=== PATIENT | female | born 1965 | race African-American/Black ===

== ENCOUNTER 2016-07-09 17:22 | Emergency (ER) | payer OTHER ==
[~2016-07-09] VITALS: Ht 167.6 cm; Wt 155.1 kg
--- NOTE | ~2016-07-09 | EKG ---
[place] [address] [facility] [place] [address] ELECTROCARDIOGRAM REPORT Name: CANDIDO FISH [facility] [id number] Admission: 07/09/16 Attend Phys: Discharge: 07/09/16 Date of : 69 Report #: [id number] THIS REPORT FOR: //name// [facility] ED Test Date: 2016-07-09 Test Time: 17:27:39 Pat Name: CANDIDO FISH Department: Room: Gender: F Home Demonstration Agent: CLAY : 1965 Requested By: Sincere Crawley Order Number: [id number] MD: Saman Leos Measurements Intervals [place] Rate: 96 P: 51 MO: 148 QRS: -10 QRSD: 100 T: 41 QT: 380 QTc: 481 Interpretive Statements Sinus rhythm Nonspecific ST and T-wave abnormality Compared to ECG 04/01/2016 11:44:37 No significant change was found Electronically Signed On 07-10-2016 8:00:26 SHOTBLASTER by Saman Leos [email or web address] <ELECTRONICALLY SIGNED> By: Saman Leos MD, [facility] 07/10/16 0800 D: [id number] Saman Leos MD, FACC /EPI
[~2016-07-09 17:22] MED LIST: ALBUTEROL INH INH; AMBIEN 5 MG TABL5 M1 PO; AMLODIPINE BESY10 MG PO; ATIVAN0.5 MG PO; AZATHIOPRINE50 MG PO; AZITHROMYCIN 2250 MG PO; BENTYL 20 MG TA20 M1 PO; BUSPIRONE HCL10 MG PO; BUSPIRONE HCL15 MG PO; CARVEDILOL12.5 MG PO; CARVEDILOL3.125 MG PO; CATAPRES0.2 MG PO; CLONAZEPAM 0.50.5 M1; CLONIDINE0.1 PO; COLACE100 MG PO; COREG12.5 MG PO; CYMBALTA30 MG PO; DEPAKOTE250 MG PO; DESYREL100 MG PO; DIOVAN 80 MG TA80 M1 PO; ENTOCORT EC 3 MG3 MG PO; FLEXERIL PO; GABAPENTIN 100100 MG PO; GLIPIZIDE 10 MG10 MG PO; GLUCOPHAGE XR500 MG PO; HYDROCODON-ACE1 EAC7 PO; HYDROXYZINE HCL25 M2 PO; IRON325 PO; K-TAB10 MEQ PO; LANTUS SOL100 UNIT/1 SUBQ; LANTUS100 UNIT/M SUBQ; LASIX 20 MG TAB20 MG PO; LASIX 40 MG TAB40 M1 PO; LEVEMIR; LEVSIN0.125 MG PO; LEXAPRO PO; LIDODERM 5%1 PATC1 TRANSDERM; LIPITOR 10 MG10 M1 PO; LIPITOR 20 MG T20 M1 PO; LISINOPRIL2.5 MG PO; MIRALAX255 GM PO; MUCINEX TA600 MG/TA2 PO; NAPROSYN500 MG PO; NEURONTIN 400400 M1 PO; NORCO 5-325 TA1 EACH PO; NORVASC10 MG PO; ONDANSETRON HCL4 M2 PO; OXYCODONE HCL E20 MG PO; OXYCODONE HCL20 M1 PO; OXYCODONE HCL30 MG PO; OXYCONTIN20 M1 PO; PEPCID20 MG PO; PERCOCET 5-3251 EACH PO; PHENERGAN 25 MG25 M1 PO; PHENERGAN50 MG RC; POTASSIUM99 M1 PO; PREDNISONE 10 M10 MG PO; PREDNISONE 20 M20 M1 PO; PREDNISONE 20 M20 MG PO; PRENATAL MULTI1 EAC2 PO; PRILOSEC 10MG C10 MG PO; PRILOSEC20 MG PO; PROAIR HFA8.5 GM INH; PROMS25 WY RECTAL; REGLAN 10 MG TA10 MG PO; SEROQUEL XR150 MG PO; TESSALON PERLE100 MG PO; TESSALON200 MG PO; TRAMADOL 50 MG50 MG PO; TUSSIONEX PENN473 ML PO; UNICOMPLEX M TA1 TA1 PO; VALIUM5 MG PO; VENTOLIN HFA 1818 GM INH; VICTOZA 3-0.6 MG/0.1 SQ; VICTOZA0.6 MG/0.1; VICTOZA0.6 MG/0.1 SUBQ; VISTARIL 25 MG25 M1 PO; VITAMIN D1000 UNI2 PO; WELLBUTRIN XL150 MG PO; XANAX 0.5 MG0.5 M1 PO; ZOFRAN ODT4 MG PO; ZOFRAN4 MG PO; ZPAK PO
[2016-07-09 18:13] LABS: ABSOLUTE NEUTROPHILS 3.7 thou/uL (1.4-8.2); BASOPHILS 0.8 % (0.0-2.0); EOSINOPHILS 1.8 % (0.0-3.0); HEMATOCRIT 33.3 % (37.0-47.0); HEMOGLOBIN 11.4 gm/dL (12.0-15.0); LYMPHOCYTES 25.4 % (24.0-44.0); MCH 26.1 pg (26.0-34.0); MCHC 34.4 % (28.0-37.0); MCV 75.8 fL (80.0-100.0); MONOCYTES 11.1 % (1.0-8.0); PLATELET COUNT 192 thou/uL (150-400); POLYS 60.9 % (36.0-66.0); RBC 4.39 mil/uL (4.20-5.00); RDW 17.2 % (10.5-14.5)
[2016-07-09 18:16] LABS: MANUAL DIFF NO
[2016-07-09 18:19] LABS: URINE BLOOD NEGATIVE (Negative); URINE COLOR YELLOW; URINE GLUCOSE-RANDOM* NEGATIVE (Negative); URINE KETONES TRACE (Negative); URINE LEUKOCYTES-REFLEX NEGATIVE (Negative); URINE PROTEIN (DIPSTICK) 1+ (Negative); URINE SPECIFIC GRAVITY >= 1.030 (1.003-1.035); URINE UROBILINOGEN 0.2 E.U./dl (0.2-1.0)
[2016-07-09 18:21] LABS: URINE BILIRUBIN NEGATIVE (Negative)
[2016-07-09 18:26] LABS: ANION GAP 10 mmol/L (7-16); BUN 15 mg/dL (7-18); CALCIUM 8.7 mg/dL (8.5-10.1); CHLORIDE 104 mmol/L (98-107); CO2 25 mmol/L (21-32); CREATININE 1.7 mg/dL (0.6-1.3); GLUCOSE 221 mg/dL (70-99); POTASSIUM 3.5 mmol/L (3.5-5.1); SODIUM 139 mmol/L (136-145)
[2016-07-09 18:29] LABS: SQUAMOUS 0-3 Few /LPF (0-3)
[2016-07-09 18:30] LABS: CASTS None Seen /LPF (None Seen); URINE RBC None Seen /HPF (0-2); URINE WBC-REFLEX 0-5 Rare /HPF (0-5)
[2016-07-09 18:31] LABS: CRYSTALS None Seen /LPF (None Seen)
[2016-07-09 18:39] LABS: ALKALINE PHOSPHATASE 152 U/L (46-116); DIRECT BILIRUBIN < 0.1 mg/dL (<0.1-0.3); NT-PRO BRAIN NAT PEPTIDE 3196 pg/mL (<300); SGOT < 5 U/L (15-37); SGPT 13 U/L (30-65); TOTAL BILIRUBIN 0.3 mg/dL (<0.1-1.0); TOTAL PROTEIN 7.3 g/dL (6.4-8.2); TROPONIN-I < 0.04 ng/mL (<0.04-0.07)
== END 2016-07-09 19:31 | disposition home or self-care (01) ==
LOC: ER 17:22
PROVIDERS: Physician Assistant
DX: R07.89 Other chest pain (principal); K50.90 Crohn's disease, unspecified, without complications; E11.22 Type 2 diabetes mellitus with diabetic chronic kidney disease; N18.9 Chronic kidney disease, unspecified; I50.9 Heart failure, unspecified; J45.909 Unspecified asthma, uncomplicated; F41.9 Anxiety disorder, unspecified; F17.210 Nicotine dependence, cigarettes, uncomplicated; Z88.5 Allergy status to narcotic agent; Z88.0 Allergy status to penicillin; Z88.8 Allergy status to other drugs, medicaments and biological substances

== ENCOUNTER 2016-09-10 14:44 | Emergency (ER) | payer OTHER ==
[~2016-09-10] VITALS: Ht 175.3 cm; Wt 113.4 kg
--- NOTE | ~2016-09-10 | EKG ---
[place] [address] [facility] [place] [address] ELECTROCARDIOGRAM REPORT Name: CANDIDO FISH [facility] [id number] Admission: 09/10/16 Attend Phys: Discharge: 09/10/16 Date of : [birth year] Report #: [id number] THIS REPORT FOR: //name// [facility] ED Test Date: 2016-09-10 Test Time: 15:15:16 Pat Name: CANDIDO FISH Department: Room: Gender: F Septic Technician: MZOOK : 1965 Requested By: Alejandro Salcedo Order Number: [id number] MD: Saman Leos Measurements Intervals [place] Rate: 98 P: 68 [place]: 145 QRS: -20 QRSD: 101 T: 63 QT: 380 QTc: 486 Interpretive Statements Sinus rhythm Nonspecific ST and T wave abnormality Borderline prolonged QT interval Compared to ECG 07/09/2016 17:27:39 No significant changes Electronically Signed On 09-11-2016 9:10:57 CDT by Saman Leos [email or web address] <ELECTRONICALLY SIGNED> By: Saman Leos MD, [facility] 09/11/16 0910 1515 1515 Saman Leos MD, FACC /EPI
[2016-09-10 15:24] LABS: URINE BILIRUBIN NEGATIVE (Negative); URINE BLOOD NEGATIVE (Negative); URINE COLOR YELLOW; URINE GLUCOSE-RANDOM* NEGATIVE (Negative); URINE KETONES NEGATIVE (Negative); URINE NITRITE NEGATIVE (Negative); URINE PROTEIN (DIPSTICK) TRACE (Negative); URINE SPECIFIC GRAVITY 1.025 (1.003-1.035); URINE UROBILINOGEN 0.2 E.U./dl (0.2-1.0)
[2016-09-10 16:11] LABS: ABSOLUTE NEUTROPHILS 3.5 thou/uL (1.4-8.2); BASOPHILS 1.1 % (0.0-2.0); EOSINOPHILS 1.6 % (0.0-3.0); HEMATOCRIT 37.3 % (37.0-47.0); HEMOGLOBIN 12.3 gm/dL (12.0-15.0); LYMPHOCYTES 32.5 % (24.0-44.0); MCH 26.1 pg (26.0-34.0); PLATELET COUNT 197 thou/uL (150-400); POLYS 56.8 % (36.0-66.0); RBC 4.72 mil/uL (4.20-5.00); RDW 16.1 % (10.5-14.5); WBC 6.2 thou/uL (4.0-11.0)
[2016-09-10 16:20] LABS: CALCIUM 8.8 mg/dL (8.5-10.1); CREATININE 1.8 mg/dL (0.6-1.3); POTASSIUM 3.1 mmol/L (3.5-5.1)
[2016-09-10 16:25] LABS: ALBUMIN 2.9 g/dL (3.4-5.0); TOTAL BILIRUBIN 0.2 mg/dL (<0.1-1.0); TOTAL PROTEIN 7.2 g/dL (6.4-8.2)
[2016-09-10 16:31] LABS: MANUAL DIFF NO
== END 2016-09-10 17:45 | disposition home or self-care (01) ==
LOC: ER 14:44
PROVIDERS: Physician Assistant
DX: R10.13 Epigastric pain (principal); K50.90 Crohn's disease, unspecified, without complications; I50.9 Heart failure, unspecified; E11.9 Type 2 diabetes mellitus without complications; J45.909 Unspecified asthma, uncomplicated; F41.9 Anxiety disorder, unspecified; Z96.612 Presence of left artificial shoulder joint; Z88.0 Allergy status to penicillin; Z88.5 Allergy status to narcotic agent; Z88.8 Allergy status to other drugs, medicaments and biological substances; F17.210 Nicotine dependence, cigarettes, uncomplicated

== ENCOUNTER 2016-09-27 17:25 | Inpatient (IN) | payer OTHER ==
[~2016-09-27] VITALS: Ht 167.6 cm; Wt 157.8 kg
--- NOTE | ~2016-09-27 | H ---
[facility] [place] [address] HISTORY AND PHYSICAL Name: CANDIDO FISH Room #: 416-P [facility] IN M.R.#: [id number] Admission: 09/27/16 Attend Phys: Gloria Martinez Discharge: 09/29/16 Date of : 69 Report #: [id number] THIS REPORT FOR: //name// CC: ANDREA Martinez DATE OF SERVICE: 09/27/2016 ATTENDING PHYSICIAN: Omer Vernon MD PRIMARY CARE PHYSICIAN: None. CHIEF COMPLAINT: Abdominal pain. HISTORY OF PRESENT ILLNESS: The patient is a 51-year-old -[place]ian female who came into the ER complaining of abdominal pain. She says this pain started yesterday morning and persisted throughout the day and started getting worse throughout the day. She has been having diarrhea for the last 2 days as well. She has not been checking her stools for blood, but says she thought they had looked dark. She has been feeling very nauseous, but denied any vomiting. She has had up to 7 to 8 stools over the last 24 hours. She says the pain is mostly in her lower abdomen and describes it as a crampy or stabbing pain. She is not sure if she has been having any fevers. She does have a history of Crohn's disease and says this does feel similar to her prior Crohn's flare. She is on a new treatment for Crohn's called Entyvio in which she has been getting IV infusions over the last month. She follows with a GI physician at [facility]. She was recently on Bactrim for UTI. She has been off antibiotics for about a week. She also reports that her pelvis is feeling very sore, she had a fall a few weeks ago when she landed in splits and since then has had some persistent pelvic pain. She says this pain does feel different than her abdominal pain. She did receive some pain medication in the ER, but is currently throwing around in bed head and stating her pain is 9/10 and requesting further pain medication. PAST MEDICAL HISTORY: Diabetes, Crohn's, congestive heart failure, unknown EF, osteoarthritis, asthma, chronic kidney disease stage 3, anemia, anxiety, bipolar, depression. PAST SURGICAL HISTORY: Hysterectomy, abdominal hernia repair, bowel resection x 1, left shoulder replacement, skin graft, bilateral knee surgeries, tummy tuck, x 3, and an exploratory laparotomy to remove a surgical instrument that had been left in her after a . ALLERGIES: LISINOPRIL caused angioedema, HYDRALAZINE is unknown reaction, MORPHINE caused redness at the site of insertion and PENICILLIN causes a rash. HOME MEDICATIONS: She does not know all her doses of her meds, but she is [facility] [address] [place] [address] HISTORY AND PHYSICAL Name: CANDIDO FISH Room #: 416-P DIS IN M.R.#: [id number] Admission: 09/27/16 Attend Phys: Gloria Martinez Discharge: 09/29/16 Date of : 69 Report #: [id number] taking iron, Lipitor, carvedilol, valsartan, oxycodone, Lamictal and Neurontin, Valium, BuSpar, hydroxyzine, potassium gluconate, Colace, Victoza, Lantus insulin is 80 units at bedtime and multivitamin daily. SOCIAL HISTORY: The patient is an ex-smoker, denies any alcohol or drug use. She ambulates with a cane. She lives alone, but she is currently from her spouse. She is on disability. FAMILY HISTORY: Significant for diabetes and hypertension. REVIEW OF SYSTEMS: Twelve point review of systems was reviewed with the patient, otherwise negative unless stated in the HPI. PHYSICAL EXAMINATION: GENERAL: The patient is an alert female in no acute distress. VITAL SIGNS: Temperature is 37.5, heart rate 98, respirations 20, blood pressure is 199/128, oxygen 95% on room air. HEENT: PERRLA. Sclerae are nonicteric. Oral mucosa is pink and moist. NECK: Supple, no JVD is noted. CARDIOVASCULAR: Normal S1, S2. No murmurs, rubs or gallops. RESPIRATORY: Breath sounds are clear bilaterally, diminished in both bases. Breathing is nonlabored. ABDOMEN: Obese, soft, and quite tender in the bilateral lower quadrants. Bowel sounds are positive. VASCULAR: No pitting edema noted. Pedal pulses are 2+. NEUROLOGIC: The patient is alert and oriented x 3. She is answering questions appropriately and following commands. No focal weakness noted. I did see her able to ambulate to the bathroom. She was walking hunched over, but she was steady on her feet. PSYCHIATRIC: The patient is cooperative, but is tearful due to pain. LABORATORY DATA AND DIAGNOSTICS: WBC of 6.0, hemoglobin 11.5, platelets 183. Sodium 138, potassium 4.1, BUN 16, creatinine 1.7, glucose 295. LFTs are within normal limits. Albumin 2.7, lipase 80. UA is negative. CT of the abdomen and pelvis without contrast shows no acute process. The gallbladder was unremarkable. ASSESSMENT AND PLAN: 1. Abdominal pain with diarrhea. The patient was on recent antibiotics. She is having increasing diarrhea, there is concern for C. difficile. She also was immunocompromised due to Crohn's treatment. We will send stool for C. difficile and continue with pain control. 2. Pelvic pain, status post fall. CT did not mention any acute bony abnormalities of the pelvis, but we will further evaluate with an x-ray, she was able to ambulate. 3. History of Crohn's disease. The patient is on some treatment with Entyvio, [facility] [address] [place] [address] HISTORY AND PHYSICAL Name: CANDIDO FISH Room #: 416-P [facility] IN M.R.#: [id number] Admission: 09/27/16 Attend Phys: Gloria Martinez Discharge: 09/29/16 Date of : 69 Report #: [id number] which she will continue with outpatient. At this time, we do not feel this is an actual Crohn's flare, so we will hold off on any steroids. Her CT was normal. 4. Diabetes type 2. Blood sugars are elevated. Resume Lantus at home and add sliding scale insulin. 5. Hypertension. Blood pressure was very elevated, likely due to pain. Continue pain medication and then we will try to clarify her home medications and resume. 6. Chronic kidney disease stage 3. Her creatinine is at baseline. Follow labs. 7. Anxiety, depression and bipolar disorder, these are stable. Continue home meds once they are clarified. 8. Deep venous thrombosis prophylaxis, place sequential compression devices. We will continue to follow the patient closely throughout the hospitalization and make changes based on clinical status. <ELECTRONICALLY SIGNED> By: PRAVEEN Adams 10/03/16 0608 0358 0703 PRAVEEN Adams /nt
[2016-09-27 17:26] VITALS: BP 199/128
[2016-09-27] MEDS ORDERED: LAMICTAL100 MG PO (17:42)
[2016-09-27 17:46] LABS: URINE BILIRUBIN NEGATIVE (Negative); URINE BLOOD NEGATIVE (Negative); URINE COLOR YELLOW; URINE GLUCOSE-RANDOM* NEGATIVE (Negative); URINE KETONES NEGATIVE (Negative); URINE LEUKOCYTES-REFLEX NEGATIVE (Negative); URINE PROTEIN (DIPSTICK) NEGATIVE (Negative); URINE SPECIFIC GRAVITY 1.015 (1.003-1.035); URINE UROBILINOGEN 0.2 E.U./dl (0.2-1.0)
[2016-09-27 18:42] LABS: RDW 16.2 % (10.5-14.5)
[2016-09-27 18:44] LABS: ABSOLUTE NEUTROPHILS 3.9 thou/uL (1.4-8.2); BASOPHILS 0.8 % (0.0-2.0); EOSINOPHILS 1.7 % (0.0-3.0); HEMOGLOBIN 11.5 gm/dL (12.0-15.0); LYMPHOCYTES 23.9 % (24.0-44.0); MCH 26.4 pg (26.0-34.0); MCV 79.9 fL (80.0-100.0); PLATELET COUNT 183 thou/uL (150-400); POLYS 64.6 % (36.0-66.0); RBC 4.38 mil/uL (4.20-5.00)
[2016-09-27 18:45] LABS: MANUAL DIFF NO
[2016-09-27 18:51] LABS: ANION GAP 4 mmol/L (7-16); BUN 16 mg/dL (7-18); CALCIUM 8.7 mg/dL (8.5-10.1); CHLORIDE 103 mmol/L (98-107); CO2 31 mmol/L (21-32); CREATININE 1.7 mg/dL (0.6-1.0); GLUCOSE 295 mg/dL (74-106); POTASSIUM 4.1 mmol/L (3.5-5.1); SODIUM 138 mmol/L (136-145)
[2016-09-27 18:57] LABS: ALBUMIN 2.7 g/dL (3.4-5.0); ALKALINE PHOSPHATASE 129 U/L (46-116); SGOT 6 U/L (15-37); SGPT 9 U/L (30-65); TOTAL BILIRUBIN 0.3 mg/dL (<0.1-1.0); TOTAL PROTEIN 6.9 g/dL (6.4-8.2)
[2016-09-27 19:12] LABS: TROPONIN-I < 0.04 ng/mL (<0.04-0.07)
[2016-09-27 21:01] VITALS: BP 175/104
[2016-09-27 21:25] VITALS: BP 155/116
[2016-09-27 23:47] VITALS: BP 151/114
[2016-09-28 03:27] VITALS: BP 155/99
[2016-09-28 07:25] LABS: CALCIUM 8.4 mg/dL (8.5-10.1); CREATININE 1.6 mg/dL (0.6-1.0); POTASSIUM 4.1 mmol/L (3.5-5.1)
[2016-09-28 08:53] VITALS: BP 159/120
[2016-09-28 11:53] VITALS: BP 144/96
[2016-09-28] MEDS ORDERED: ADVAIR 250-501 EACH INH (14:56)
[2016-09-28 16:00] VITALS: BP 130/80
[2016-09-28] MEDS ORDERED: BUDESONIDE PO (16:33)
[2016-09-28] MEDS ORDERED: LIPITOR 20 MG T20 M1 PO (16:34)
[2016-09-28] MEDS ORDERED: LAMICTAL 25 MG25 M1 PO (16:35)
[2016-09-28] MEDS ORDERED: CARVEDILOL12.5 MG PO (16:36)
[2016-09-28] MEDS ORDERED: BUSPIRONE HCL10 MG PO (16:38)
[2016-09-28] MEDS ORDERED: FUROSEMIDE 20 M20 MG PO (19:40)
[2016-09-28] MEDS ORDERED: GLIPIZIDE XL10 MG PO (19:42)
[2016-09-28] MEDS ORDERED: POTASSIUM CHLO10 MEQ PO (19:44)
[2016-09-28] MEDS ORDERED: WELLBUTRIN XL150 MG PO (19:45)
[2016-09-28] MEDS ORDERED: HYDROXYZINE HCL25 M1 PO (19:46)
[2016-09-28] MEDS ORDERED: HYDROXYZINE HCL25 M2 PO (19:47)
[2016-09-28] MEDS ORDERED: IRON325 PO (19:48)
[2016-09-28] MEDS ORDERED: NEURONTIN 400400 M1 PO (19:49)
[2016-09-28] MEDS ORDERED: DIOVAN320 MG PO (19:52)
[2016-09-28] MEDS ORDERED: DAILY VITE1 EACH PO (19:53)
[2016-09-28] MEDS ORDERED: VITAMIN D31000 UNI2 PO (19:54)
[2016-09-28 20:27] VITALS: BP 145/98
[2016-09-29 04:00] VITALS: BP 154/103
[2016-09-29 08:47] VITALS: BP 147/71
[2016-09-29] MEDS ORDERED: PROTONIX40 M1 PO (10:07)
[2016-09-29] MEDS ORDERED: ONDANSETRON HCL4 M2 PO (10:07)
[2016-09-29 10:24] VITALS: BP 147/71
== END 2016-09-29 12:30 | disposition home or self-care (01) | DRG 392 ==
LOC: ER 17:25 → 4N 20:38 → EROBS 20:38 → 4N 21:03
PROVIDERS: Emergency Medicine; Nurse Practitioner Acute Care
DX: K52.9 Noninfective gastroenteritis and colitis, unspecified (principal); K50.90 Crohn's disease, unspecified, without complications; I13.0 Hypertensive heart and chronic kidney disease with heart failure and stage 1 through stage 4 chronic kidney disease, or unspecified chronic kidney disease; I50.9 Heart failure, unspecified; M19.90 Unspecified osteoarthritis, unspecified site; J45.909 Unspecified asthma, uncomplicated; F41.9 Anxiety disorder, unspecified; N18.3 Chronic kidney disease, stage 3 (moderate); Z60.2 Problems related to living alone; E11.22 Type 2 diabetes mellitus with diabetic chronic kidney disease; F31.9 Bipolar disorder, unspecified; Z79.899 Other long term (current) drug therapy; Z88.8 Allergy status to other drugs, medicaments and biological substances; Z88.0 Allergy status to penicillin; Z88.6 Allergy status to analgesic agent; Z90.710 Acquired absence of both cervix and uterus; Z87.891 Personal history of nicotine dependence; Z82.49 Family history of ischemic heart disease and other diseases of the circulatory system; Z91.81 History of falling
CPT/HCPCS: 10091

== ENCOUNTER 2016-10-28 18:04 | Emergency (ER) | payer OTHER ==
[~2016-10-28] VITALS: Ht 167.6 cm; Wt 156.5 kg
[~2016-10-28 18:04] MED LIST changes: +ADVAIR 250-501 EACH INH; +BUDESONIDE PO; +DAILY VITE1 EACH PO; +DIOVAN320 MG PO; +FUROSEMIDE 20 M20 MG PO; +GLIPIZIDE XL10 MG PO; +HYDROXYZINE HCL25 M1 PO; +LAMICTAL 25 MG25 M1 PO; +LAMICTAL100 MG PO; +POTASSIUM CHLO10 MEQ PO; +PROTONIX40 M1 PO; +VITAMIN D31000 UNI2 PO
[2016-10-28 18:29] LABS: URINE BILIRUBIN NEGATIVE (Negative); URINE BLOOD TRACE (Negative); URINE COLOR YELLOW; URINE GLUCOSE-RANDOM* NEGATIVE (Negative); URINE KETONES NEGATIVE (Negative); URINE NITRITE NEGATIVE (Negative); URINE PROTEIN (DIPSTICK) NEGATIVE (Negative); URINE UROBILINOGEN 0.2 E.U./dl (0.2-1.0)
[2016-10-28 18:49] LABS: ABSOLUTE NEUTROPHILS 2.7 thou/uL (1.4-8.2); BASOPHILS 0.7 % (0.0-2.0); EOSINOPHILS 1.8 % (0.0-3.0); HEMATOCRIT 37.8 % (37.0-47.0); HEMOGLOBIN 12.3 gm/dL (12.0-15.0); LYMPHOCYTES 34.7 % (24.0-44.0); MANUAL DIFF NO; MCH 25.8 pg (26.0-34.0); MCHC 32.4 g/dL (28.0-37.0); MCV 79.5 fL (80.0-100.0); MONOCYTES 10.9 % (1.0-8.0); PLATELET COUNT 177 thou/uL (150-400); POLYS 51.9 % (36.0-66.0); RBC 4.75 mil/uL (4.20-5.00); RDW 15.9 % (10.5-14.5); WBC 5.3 thou/uL (4.0-11.0)
[2016-10-28 18:55] LABS: ANION GAP 8 mmol/L (7-16); BUN 16 mg/dL (7-18); CHLORIDE 101 mmol/L (98-107); CO2 28 mmol/L (21-32); CREATININE 1.8 mg/dL (0.6-1.0); GLUCOSE 295 mg/dL (74-106); SODIUM 137 mmol/L (136-145)
[2016-10-28] MEDS ORDERED: PHENERGAN 25 MG25 M1 PO (19:00)
[2016-10-28 19:05] LABS: ALBUMIN 3.2 g/dL (3.4-5.0); ALKALINE PHOSPHATASE 127 U/L (46-116); DIRECT BILIRUBIN < 0.1 mg/dL (<0.1-0.3); SGOT 10 U/L (15-37); SGPT 13 U/L (30-65); TOTAL BILIRUBIN 0.4 mg/dL (<0.1-1.0); TOTAL PROTEIN 7.6 g/dL (6.4-8.2)
== END 2016-10-28 19:57 | disposition home or self-care (01) ==
LOC: ER 18:04
PROVIDERS: Emergency Medicine
DX: G89.29 Other chronic pain (principal); R10.9 Unspecified abdominal pain; E66.01 Morbid (severe) obesity due to excess calories; S09.90XA Unspecified injury of head, initial encounter; E11.9 Type 2 diabetes mellitus without complications; Z68.43 Body mass index [BMI] 50.0-59.9, adult; Z90.710 Acquired absence of both cervix and uterus; Z88.0 Allergy status to penicillin; Z88.5 Allergy status to narcotic agent; Z88.8 Allergy status to other drugs, medicaments and biological substances; Z87.891 Personal history of nicotine dependence

== ENCOUNTER 2016-11-30 12:26 | Emergency (ER) | payer OTHER ==
[~2016-11-30] VITALS: Ht 167.6 cm; Wt 154.2 kg
[2016-11-30] MEDS ORDERED: TOPROL XL100 MG PO (12:32)
[2016-11-30] MEDS ORDERED: OXYCODONE HCL15 MG PO (12:52)
[2016-11-30] MEDS ORDERED: CARVEDILOL12.5 MG PO (12:53)
[2016-11-30] MEDS ORDERED: HYDROCHLOROTHIA25 M2 PO (12:53)
[2016-11-30] MEDS ORDERED: CHILDREN'S ASPI81 MG PO (12:53)
[2016-11-30 13:26] LABS: ABSOLUTE NEUTROPHILS 3.4 thou/uL (1.4-8.2); BASOPHILS 0.4 % (0.0-2.0); EOSINOPHILS 2.5 % (0.0-3.0); HEMATOCRIT 36.6 % (37.0-47.0); HEMOGLOBIN 12.1 gm/dL (12.0-15.0); LYMPHOCYTES 32.1 % (24.0-44.0); MCH 26.2 pg (26.0-34.0); MCV 79.3 fL (80.0-100.0); MONOCYTES 10.8 % (1.0-8.0); PLATELET COUNT 180 thou/uL (150-400); POLYS 54.2 % (36.0-66.0); RBC 4.61 mil/uL (4.20-5.00); RDW 15.9 % (10.5-14.5); WBC 6.2 thou/uL (4.0-11.0)
[2016-11-30 13:28] LABS: MANUAL DIFF NO
[2016-11-30 13:29] LABS: CREATININE 1.9 mg/dL (0.6-1.0); POTASSIUM 4.3 mmol/L (3.5-5.1)
[2016-11-30 13:34] LABS: TOTAL BILIRUBIN 0.3 mg/dL (<0.1-1.0); TOTAL PROTEIN 7.4 g/dL (6.4-8.2)
== END 2016-11-30 15:17 | disposition home or self-care (01) ==
LOC: ER 12:26
PROVIDERS: Physician Assistant
DX: K50.90 Crohn's disease, unspecified, without complications (principal); R51 Headache; Z90.710 Acquired absence of both cervix and uterus; Z98.890 Other specified postprocedural states; Z88.8 Allergy status to other drugs, medicaments and biological substances; Z88.0 Allergy status to penicillin; Z88.5 Allergy status to narcotic agent; Z87.891 Personal history of nicotine dependence; Z53.21 Procedure and treatment not carried out due to patient leaving prior to being seen by health care provider

== ENCOUNTER 2016-12-27 10:09 | Emergency (ER) | payer OTHER ==
[~2016-12-27] VITALS: Ht 167.6 cm; Wt 154.2 kg
[~2016-12-27 10:09] MED LIST changes: +CHILDREN'S ASPI81 MG PO; +HYDROCHLOROTHIA25 M2 PO; +OXYCODONE HCL15 MG PO; +TOPROL XL100 MG PO
[2016-12-27] MEDS ORDERED: NIFEDIPINE20 MG (10:48)
[2016-12-27] MEDS ORDERED: CIPRODEX OTIC7.5 ML OTIC (10:49)
== END 2016-12-27 11:19 | disposition home or self-care (01) ==
LOC: ER 10:09
DX: H60.92 Unspecified otitis externa, left ear (principal); Z90.710 Acquired absence of both cervix and uterus; Z98.890 Other specified postprocedural states; Z88.5 Allergy status to narcotic agent; Z88.0 Allergy status to penicillin; Z88.8 Allergy status to other drugs, medicaments and biological substances; Z87.891 Personal history of nicotine dependence

== ENCOUNTER 2017-02-17 11:55 | Emergency (ER) | payer OTHER | END 2017-02-17 15:07 | disposition home or self-care (01) | LOC: ER 11:55 | DX: G89.29 Other chronic pain (principal); M54.2 Cervicalgia; Z90.710 Acquired absence of both cervix and uterus; Z98.890 Other specified postprocedural states; Z88.0 Allergy status to penicillin; Z88.5 Allergy status to narcotic agent; Z88.8 Allergy status to other drugs, medicaments and biological substances; Z87.891 Personal history of nicotine dependence ==

== ENCOUNTER 2017-03-18 19:35 | Inpatient (IN) | payer OTHER ==
[~2017-03-18] VITALS: Ht 167.6 cm; Wt 155.1 kg
[~2017-03-18 19:35] MED LIST changes: +CIPRODEX OTIC7.5 ML OTIC; +NIFEDIPINE20 MG
[2017-03-18 19:39] VITALS: BP 130/98
[2017-03-18 20:09] LABS: URINE BILIRUBIN NEGATIVE (Negative); URINE BLOOD NEGATIVE (Negative); URINE COLOR YELLOW; URINE GLUCOSE-RANDOM* 3+ (Negative); URINE KETONES NEGATIVE (Negative); URINE NITRITE NEGATIVE (Negative); URINE PROTEIN (DIPSTICK) NEGATIVE (Negative); URINE SPECIFIC GRAVITY <= 1.005 (1.003-1.035); URINE UROBILINOGEN 0.2 E.U./dl (0.2-1.0)
[2017-03-18 20:47] LABS: ABSOLUTE NEUTROPHILS 2.8 thou/uL (1.4-8.2); BASOPHILS 0.9 % (0.0-2.0); EOSINOPHILS 2.4 % (0.0-3.0); HEMATOCRIT 37.7 % (37.0-47.0); HEMOGLOBIN 12.5 gm/dL (12.0-15.0); MCH 25.9 pg (26.0-34.0); MCHC 33.2 g/dL (28.0-37.0); MCV 78.1 fL (80.0-100.0); MONOCYTES 11.3 % (1.0-8.0); PLATELET COUNT 203 thou/uL (150-400); POLYS 45.4 % (36.0-66.0); RBC 4.83 mil/uL (4.20-5.00); RDW 15.6 % (10.5-14.5); WBC 6.1 thou/uL (4.0-11.0)
[2017-03-18 20:48] LABS: MANUAL DIFF NO
[2017-03-18 20:58] LABS: CREATININE 2.8 mg/dL (0.6-1.0); POTASSIUM 4.3 mmol/L (3.5-5.1)
[2017-03-18 21:01] LABS: TOTAL BILIRUBIN 0.2 mg/dL (<0.1-1.0)
[2017-03-18 21:02] LABS: ALBUMIN 3.5 g/dL (3.4-5.0); TOTAL PROTEIN 7.3 g/dL (6.4-8.2)
[2017-03-18 21:31] VITALS: BP 113/82
[2017-03-18 21:48] VITALS: BP 121/89
[2017-03-18 23:30] VITALS: BP 140/101
[2017-03-19 04:30] VITALS: BP 119/84; BP 165/78
[2017-03-19 09:00] VITALS: BP 135/93
[2017-03-19 09:34] LABS: ABSOLUTE NEUTROPHILS 7.5 thou/uL (1.4-8.2); BASOPHILS 0.5 % (0.0-2.0); EOSINOPHILS 0.1 % (0.0-3.0); HEMATOCRIT 40.7 % (37.0-47.0); HEMOGLOBIN 13.2 gm/dL (12.0-15.0); LYMPHOCYTES 10.5 % (24.0-44.0); MCH 25.4 pg (26.0-34.0); MCHC 32.3 g/dL (28.0-37.0); MCV 78.8 fL (80.0-100.0); PLATELET COUNT 221 thou/uL (150-400); POLYS 87.9 % (36.0-66.0); RBC 5.17 mil/uL (4.20-5.00); RDW 16.4 % (10.5-14.5); WBC 8.5 thou/uL (4.0-11.0)
[2017-03-19 09:35] LABS: MANUAL DIFF NO
[2017-03-19 09:39] LABS: CALCIUM 9.2 mg/dL (8.5-10.1); CREATININE 2.6 mg/dL (0.6-1.0)
[2017-03-19 17:36] VITALS: BP 169/107
[2017-03-19 18:15] VITALS: BP 169/107
[2017-03-19 18:25] VITALS: BP 169/107
== END 2017-03-19 18:38 | disposition home or self-care (01) | DRG 386 ==
LOC: ER 19:35 → 4E 21:21 → EROBS 21:21 → 4E 22:39 → ENTRNSPT 03-19 18:29 → 4E 03-19 18:38
PROVIDERS: Family Medicine; Nurse Practitioner Acute Care; Nurse Practitioner Family
DX: K50.90 Crohn's disease, unspecified, without complications (principal); N17.9 Acute kidney failure, unspecified; E87.1 Hypo-osmolality and hyponatremia; I13.0 Hypertensive heart and chronic kidney disease with heart failure and stage 1 through stage 4 chronic kidney disease, or unspecified chronic kidney disease; Z68.43 Body mass index [BMI] 50.0-59.9, adult; E11.65 Type 2 diabetes mellitus with hyperglycemia; E66.9 Obesity, unspecified; E11.22 Type 2 diabetes mellitus with diabetic chronic kidney disease; I50.9 Heart failure, unspecified; G89.29 Other chronic pain; J45.909 Unspecified asthma, uncomplicated; F41.9 Anxiety disorder, unspecified; F31.9 Bipolar disorder, unspecified; E78.5 Hyperlipidemia, unspecified; N18.3 Chronic kidney disease, stage 3 (moderate); K76.0 Fatty (change of) liver, not elsewhere classified; Z79.4 Long term (current) use of insulin; Z79.51 Long term (current) use of inhaled steroids; Z79.82 Long term (current) use of aspirin; Z79.899 Other long term (current) drug therapy; Z87.891 Personal history of nicotine dependence; Z90.710 Acquired absence of both cervix and uterus; Z88.0 Allergy status to penicillin; Z88.5 Allergy status to narcotic agent; Z88.8 Allergy status to other drugs, medicaments and biological substances
CPT/HCPCS: 10183

== ENCOUNTER 2017-07-03 15:46 | Emergency (ER) | payer OTHER ==
[~2017-07-03] VITALS: Ht 167.6 cm; Wt 148.3 kg
[~2017-07-03 15:46] MED LIST changes: +CARAFATE 1 GM TA1 G1 PO
[2017-07-03 17:25] LABS: URINE BILIRUBIN NEGATIVE (Negative); URINE BLOOD NEGATIVE (Negative); URINE CLARITY CLEAR; URINE COLOR YELLOW; URINE GLUCOSE-RANDOM* NEGATIVE (Negative); URINE KETONES NEGATIVE (Negative); URINE LEUKOCYTES NEGATIVE (Negative); URINE NITRITE NEGATIVE (Negative); URINE PROTEIN (DIPSTICK) NEGATIVE (Negative); URINE SPECIFIC GRAVITY 1.025 (1.005-1.035); URINE UROBILINOGEN 0.2 E.U./dl (0.2-1.0)
[2017-07-03 17:39] LABS: BASOPHILS 0.7 % (0.0-2.0); EOSINOPHILS 3.3 % (0.0-3.0); HEMATOCRIT 35.9 % (37.0-47.0); LYMPHOCYTES 42.2 % (24.0-44.0); MCH 25.5 pg (26.0-34.0); MCHC 33.4 g/dL (28.0-37.0); MCV 76.5 fL (80.0-100.0); MONOCYTES 8.9 % (1.0-8.0); PLATELET COUNT 240 thou/uL (150-400); POLYS 44.9 % (36.0-66.0); RDW 16.5 % (10.5-14.5); WBC 6.7 thou/uL (4.0-11.0)
[2017-07-03 17:49] LABS: CALCIUM 9.1 mg/dL (8.5-10.1); CREATININE 1.7 mg/dL (0.6-1.0); POTASSIUM 3.8 mmol/L (3.5-5.1)
[2017-07-03 17:56] LABS: ALBUMIN 3.1 g/dL (3.4-5.0); TOTAL BILIRUBIN 0.2 mg/dL (<0.1-1.0); TOTAL PROTEIN 7.6 g/dL (6.4-8.2)
[2017-07-03] MEDS ORDERED: PHENERGAN 25 MG25 M1 PO (18:47)
[2017-07-03 19:14] VITALS: BP 173/92
== END 2017-07-03 19:18 | disposition home or self-care (01) ==
LOC: ER 15:46
PROVIDERS: Physician Assistant
DX: R10.30 Lower abdominal pain, unspecified (principal); G89.29 Other chronic pain; I13.0 Hypertensive heart and chronic kidney disease with heart failure and stage 1 through stage 4 chronic kidney disease, or unspecified chronic kidney disease; E11.22 Type 2 diabetes mellitus with diabetic chronic kidney disease; N18.3 Chronic kidney disease, stage 3 (moderate); I50.9 Heart failure, unspecified; E78.00 Pure hypercholesterolemia, unspecified; J45.909 Unspecified asthma, uncomplicated; F41.9 Anxiety disorder, unspecified; F31.9 Bipolar disorder, unspecified; M06.9 Rheumatoid arthritis, unspecified; Z98.890 Other specified postprocedural states; Z87.891 Personal history of nicotine dependence; Z88.5 Allergy status to narcotic agent; Z88.0 Allergy status to penicillin; Z88.8 Allergy status to other drugs, medicaments and biological substances; Z79.4 Long term (current) use of insulin

== ENCOUNTER 2017-09-04 16:06 | Emergency (ER) | payer OTHER ==
[~2017-09-04] VITALS: Ht 167.6 cm; Wt 153.3 kg
[2017-09-04 17:41] LABS: ABSOLUTE NEUTROPHILS 2.9 thou/uL (1.4-8.2); BASOPHILS 0.8 % (0.0-2.0); EOSINOPHILS 3.1 % (0.0-3.0); HEMATOCRIT 34.2 % (37.0-47.0); MCH 24.9 pg (26.0-34.0); MCHC 32.1 g/dL (28.0-37.0); MCV 77.5 fL (80.0-100.0); MONOCYTES 10.9 % (1.0-8.0); PLATELET COUNT 243 thou/uL (150-400); POLYS 47.2 % (36.0-66.0); RBC 4.41 mil/uL (4.20-5.00); RDW 16.7 % (10.5-14.5); WBC 6.2 thou/uL (4.0-11.0)
[2017-09-04 17:53] LABS: CALCIUM 9.4 mg/dL (8.5-10.1); CREATININE 1.9 mg/dL (0.6-1.0); POTASSIUM 4.2 mmol/L (3.5-5.1)
[2017-09-04 17:58] LABS: ALBUMIN 3.1 g/dL (3.4-5.0); TOTAL BILIRUBIN 0.2 mg/dL (<0.1-1.0); TOTAL PROTEIN 7.5 g/dL (6.4-8.2)
[2017-09-04 18:55] VITALS: BP 134/104
== END 2017-09-04 19:30 | disposition home or self-care (01) ==
LOC: ER 16:06
PROVIDERS: Physician Assistant
DX: K50.90 Crohn's disease, unspecified, without complications (principal); I13.0 Hypertensive heart and chronic kidney disease with heart failure and stage 1 through stage 4 chronic kidney disease, or unspecified chronic kidney disease; E11.22 Type 2 diabetes mellitus with diabetic chronic kidney disease; N18.3 Chronic kidney disease, stage 3 (moderate); I50.9 Heart failure, unspecified; F41.9 Anxiety disorder, unspecified; J45.909 Unspecified asthma, uncomplicated; E78.5 Hyperlipidemia, unspecified; Z79.4 Long term (current) use of insulin; Z86.2 Personal history of diseases of the blood and blood-forming organs and certain disorders involving the immune mechanism; Z90.710 Acquired absence of both cervix and uterus; Z88.0 Allergy status to penicillin; Z88.6 Allergy status to analgesic agent; Z88.8 Allergy status to other drugs, medicaments and biological substances; Z87.891 Personal history of nicotine dependence

== ENCOUNTER 2018-10-09 19:15 | Emergency (ER) | payer OTHER ==
[~2018-10-09] VITALS: Ht 167.6 cm; Wt 116.1 kg
[2018-10-09 19:38] LABS: URINE BILIRUBIN NEGATIVE (Negative); URINE BLOOD TRACE (Negative); URINE CLARITY SL CLOUDY; URINE COLOR YELLOW; URINE GLUCOSE-RANDOM* NEGATIVE (Negative); URINE KETONES TRACE (Negative); URINE LEUKOCYTES-REFLEX NEGATIVE (Negative); URINE NITRITE-REFLEX NEGATIVE (Negative); URINE PROTEIN (DIPSTICK) 2+ (Negative); URINE SPECIFIC GRAVITY >= 1.030 (1.005-1.035); URINE UROBILINOGEN 0.2 E.U./dl (0.2-1.0)
[2018-10-09 19:47] LABS: AMORPHOUS URATES Moderate /LPF (None Seen); BACTERIA-REFLEX None Seen /HPF (None Seen); CASTS None Seen /LPF (None Seen); SQUAMOUS >10 Many /LPF (0-3); URINE RBC 3-10 Few /HPF (0-2); URINE WBC-REFLEX 6-15 Few /HPF (0-5)
[2018-10-09 20:23] LABS: HEMATOCRIT 38.4 % (37.0-47.0); HEMOGLOBIN 12.6 gm/dL (12.0-15.0); MCH 25.9 pg (26.0-34.0); MCHC 32.8 g/dL (28.0-37.0); MCV 79.1 fL (80.0-100.0); PLATELET COUNT 206 thou/uL (150-400); RBC 4.85 mil/uL (4.20-5.00); RDW 19.7 % (10.5-14.5); WBC 6.5 thou/uL (4.0-11.0)
[2018-10-09 20:35] LABS: CREATININE 2.3 mg/dL (0.6-1.0); POTASSIUM 3.8 mmol/L (3.5-5.1)
[2018-10-09 20:41] LABS: ALBUMIN 3.2 g/dL (3.4-5.0); TOTAL BILIRUBIN 0.3 mg/dL (<0.1-1.0)
[2018-10-09 20:46] LABS: ABSOLUTE NEUTROPHILS 4.3 thou/uL (1.4-8.2); ANISOCYTOSIS 2+
[2018-10-09 22:42] VITALS: BP 132/96
== END 2018-10-09 23:00 | disposition home or self-care (01) ==
LOC: ER 19:15
PROVIDERS: Emergency Medicine
DX: R10.30 Lower abdominal pain, unspecified (principal); F11.20 Opioid dependence, uncomplicated; R19.7 Diarrhea, unspecified; R35.0 Frequency of micturition; E11.22 Type 2 diabetes mellitus with diabetic chronic kidney disease; I13.0 Hypertensive heart and chronic kidney disease with heart failure and stage 1 through stage 4 chronic kidney disease, or unspecified chronic kidney disease; N18.3 Chronic kidney disease, stage 3 (moderate); I50.9 Heart failure, unspecified; K50.90 Crohn's disease, unspecified, without complications; J45.909 Unspecified asthma, uncomplicated; E78.5 Hyperlipidemia, unspecified; Z79.4 Long term (current) use of insulin; Z79.899 Other long term (current) drug therapy; Z90.710 Acquired absence of both cervix and uterus; Z87.891 Personal history of nicotine dependence; Z88.0 Allergy status to penicillin; Z88.5 Allergy status to narcotic agent; Z88.8 Allergy status to other drugs, medicaments and biological substances

== ENCOUNTER 2018-10-21 13:54 | Inpatient (IN) | payer OTHER ==
[~2018-10-21] VITALS: Ht 167.6 cm; Wt 118.4 kg
[2018-10-21 13:54] VITALS: BP 193/120
[~2018-10-21 13:54] MED LIST changes: +ATORVASTATIN CA40 MG PO; +NIFEDIPINE ER30 M1 PO; -NIFEDIPINE20 MG; -TOPROL XL100 MG PO; +TOPROL XL25 MG PO
[2018-10-21 14:34] LABS: URINE BILIRUBIN NEGATIVE (Negative); URINE BLOOD NEGATIVE (Negative); URINE CLARITY CLEAR; URINE COLOR YELLOW; URINE GLUCOSE-RANDOM* 2+ (Negative); URINE KETONES NEGATIVE (Negative); URINE LEUKOCYTES NEGATIVE (Negative); URINE NITRITE NEGATIVE (Negative); URINE PROTEIN (DIPSTICK) TRACE (Negative); URINE SPECIFIC GRAVITY 1.015 (1.005-1.035); URINE UROBILINOGEN 0.2 E.U./dl (0.2-1.0)
[2018-10-21 14:45] LABS: BASOPHILS 0.5 % (0.0-2.0); EOSINOPHILS 1.9 % (0.0-3.0); HEMATOCRIT 37.4 % (37.0-47.0); HEMOGLOBIN 12.3 gm/dL (12.0-15.0); LYMPHOCYTES 27.4 % (24.0-44.0); MCH 26.4 pg (26.0-34.0); MCHC 32.9 g/dL (28.0-37.0); MCV 80.2 fL (80.0-100.0); MONOCYTES 11.1 % (1.0-8.0); PLATELET COUNT 193 thou/uL (150-400); POLYS 59.1 % (36.0-66.0); RBC 4.67 mil/uL (4.20-5.00); RDW 19.6 % (10.5-14.5); WBC 5.2 thou/uL (4.0-11.0)
[2018-10-21 14:52] LABS: CALCIUM 9.5 mg/dL (8.5-10.1); CREATININE 2.2 mg/dL (0.6-1.0); POTASSIUM 4.3 mmol/L (3.5-5.1)
[2018-10-21 14:59] LABS: ALBUMIN 2.9 g/dL (3.4-5.0); TOTAL BILIRUBIN 0.2 mg/dL (<0.1-1.0); TOTAL PROTEIN 7.6 g/dL (6.4-8.2)
[2018-10-21 15:15] LABS: ANISOCYTOSIS 2+; PLATELET ESTIMATE NORMAL
--- NOTE | 2018-10-21 16:50 | EKG ---
[place] [address] [facility] [place] [address] ELECTROCARDIOGRAM REPORT Name: CANDIDO FISH Room #: 170-6 ADM IN M.R.#: [id number] ������������������ Admission: 10/21/18 ������������������ Attend Phys: Greg Dupree MD Discharge: ������������������ Date of : 69 Report #: [id number] ����������������������������������������������������������������� [id number] THIS REPORT FOR: //name// [facility] ED Test Date: 2018-10-21 Test Time: 15:41:07 Pat Name: CANDIDO FISH Department: Room: 170 Gender: F Derrick Hand: cw : 1965 Requested By: Marco A Calles Order Number: [id number] MD: Saman Leos Measurements Intervals [place] Rate: 65 P: 67 TN: 128 QRS: -4 QRSD: 100 T: 44 QT: 425 QTc: 442 Interpretive Statements Sinus rhythm Nonspecific T wave abnormality Compared to ECG 04/27/2017 03:57:07 No significant changes Electronically Signed On 10-21-2018 16:50:42 CDT by Saman Leos [email or web address] ��������������������������������������������� <ELECTRONICALLY SIGNED> ���������������������������������������� By: Saman Leos MD, [facility] ��������������������������������������������� 10/21/18 1650 D: 04/1540 154 Saman Leos MD, FACC /EPI
[2018-10-21 17:04] VITALS: BP 161/88
[2018-10-21 17:44] VITALS: BP 176/107
[2018-10-21 19:53] VITALS: BP 172/111
[2018-10-22] VITALS: BP 155/103
[2018-10-22 05:05] VITALS: BP 155/104
[2018-10-22 05:32] LABS: ABSOLUTE NEUTROPHILS 6.9 thou/uL (1.4-8.2); BASOPHILS 0.5 % (0.0-2.0); EOSINOPHILS 0.1 % (0.0-3.0); HEMATOCRIT 38.7 % (37.0-47.0); HEMOGLOBIN 12.4 gm/dL (12.0-15.0); MCHC 31.9 g/dL (28.0-37.0); MCV 81.3 fL (80.0-100.0); MONOCYTES 0.5 % (1.0-8.0); PLATELET COUNT 219 thou/uL (150-400); POLYS 91.9 % (36.0-66.0); RBC 4.76 mil/uL (4.20-5.00); RDW 19.2 % (10.5-14.5); WBC 7.5 thou/uL (4.0-11.0)
[2018-10-22 05:57] LABS: CALCIUM 9.6 mg/dL (8.5-10.1); CREATININE 2.3 mg/dL (0.6-1.0); MAGNESIUM 1.5 mg/dL (1.8-2.4); POTASSIUM 5.1 mmol/L (3.5-5.1)
[2018-10-22 07:39] VITALS: BP 167/112
[2018-10-22] MEDS ORDERED: FLOVENT HFA12 G1 INH (10:07)
[2018-10-22] MEDS ORDERED: PROAIR HFA8.5 GM INH (10:07)
[2018-10-22] MEDS ORDERED: OXYCODONE HCL10 MG PO (10:08)
[2018-10-22] MEDS ORDERED: LASIX 20 MG TAB20 MG PO (10:11)
[2018-10-22] MEDS ORDERED: TYLENOL325 MG PO (10:11)
[2018-10-22] MEDS ORDERED: ZANAFLEX4 MG PO (10:11)
[2018-10-22 16:24] VITALS: BP 160/113
[2018-10-22 23:36] VITALS: BP 160/113
[2018-10-23 00:56] VITALS: BP 141/90
[2018-10-23 01:10] LABS: GLYCOHEMOGLOBIN (HGB A1C) 11.7 % (4.8-5.6)
[2018-10-23 06:03] LABS: HEMATOCRIT 33.7 % (37.0-47.0); HEMOGLOBIN 10.9 gm/dL (12.0-15.0); MCH 26.3 pg (26.0-34.0); MCHC 32.5 g/dL (28.0-37.0); RBC 4.16 mil/uL (4.20-5.00); RDW 19.7 % (10.5-14.5); WBC 5.8 thou/uL (4.0-11.0)
[2018-10-23 06:19] LABS: CALCIUM 8.8 mg/dL (8.5-10.1); CREATININE 2.2 mg/dL (0.6-1.0); MAGNESIUM 1.7 mg/dL (1.8-2.4); POTASSIUM 4.7 mmol/L (3.5-5.1)
[2018-10-23 08:04] VITALS: BP 134/84
[2018-10-23 19:57] VITALS: BP 149/74
[2018-10-24 06:57] LABS: HEMATOCRIT 35.3 % (37.0-47.0); HEMOGLOBIN 11.4 gm/dL (12.0-15.0); MCH 26.1 pg (26.0-34.0); MCHC 32.3 g/dL (28.0-37.0); MCV 80.9 fL (80.0-100.0); RBC 4.37 mil/uL (4.20-5.00); RDW 19.7 % (10.5-14.5); WBC 6.1 thou/uL (4.0-11.0)
[2018-10-24 07:11] LABS: CALCIUM 9.2 mg/dL (8.5-10.1); MAGNESIUM 1.6 mg/dL (1.8-2.4); POTASSIUM 4.8 mmol/L (3.5-5.1)
[2018-10-24 08:28] VITALS: BP 166/107
[2018-10-24] MEDS ORDERED: PEPCID20 MG PO (13:45)
[2018-10-24] MEDS ORDERED: BUDESONIDE EC3 MG PO (13:45)
[2018-10-24] MEDS ORDERED: NIFEDIPINE ER30 M1 PO (13:45)
[2018-10-24] MEDS ORDERED: FLAGYL500 M1 PO (13:45)
[2018-10-24] MEDS ORDERED: PREDNISONE 10 M10 MG PO (13:45)
[2018-10-24] MEDS ORDERED: HYDROXYZINE HCL25 M1 PO (13:45)
[2018-10-24 13:57] VITALS: BP 186/108
== END 2018-10-24 14:05 | disposition home or self-care (01) | DRG 392 ==
LOC: ER 13:54 → SICU 16:43 → EROBS 16:43 → 3W 17:24 → ENTRNSPT 10-22 15:13 → SICU 10-22 16:14 → ENTRNSPT 10-24 14:07
PROVIDERS: Emergency Medicine; Internal Medicine; Nurse Practitioner; ADMIT Hospitalist
DX: A09 Infectious gastroenteritis and colitis, unspecified (principal); K55.9 Vascular disorder of intestine, unspecified; K50.90 Crohn's disease, unspecified, without complications; N17.9 Acute kidney failure, unspecified; F11.20 Opioid dependence, uncomplicated; E46 Unspecified protein-calorie malnutrition; Z68.41 Body mass index [BMI] 40.0-44.9, adult; I13.0 Hypertensive heart and chronic kidney disease with heart failure and stage 1 through stage 4 chronic kidney disease, or unspecified chronic kidney disease; E11.22 Type 2 diabetes mellitus with diabetic chronic kidney disease; I50.9 Heart failure, unspecified; J45.909 Unspecified asthma, uncomplicated; F31.9 Bipolar disorder, unspecified; F41.9 Anxiety disorder, unspecified; N18.3 Chronic kidney disease, stage 3 (moderate); G89.4 Chronic pain syndrome; E11.65 Type 2 diabetes mellitus with hyperglycemia; I16.0 Hypertensive urgency; Z96.659 Presence of unspecified artificial knee joint; M24.541 Contracture, right hand; E78.5 Hyperlipidemia, unspecified; Z88.6 Allergy status to analgesic agent; Z88.0 Allergy status to penicillin; Z88.8 Allergy status to other drugs, medicaments and biological substances; Z90.710 Acquired absence of both cervix and uterus; Z87.891 Personal history of nicotine dependence; Z86.73 Personal history of transient ischemic attack (TIA), and cerebral infarction without residual deficits; Z82.49 Family history of ischemic heart disease and other diseases of the circulatory system; Z79.899 Other long term (current) drug therapy
CPT/HCPCS: 10080; 15002

== ENCOUNTER 2018-11-18 13:32 | Emergency (ER) | payer OTHER ==
[~2018-11-18] VITALS: Ht 167.6 cm; Wt 113.4 kg
[~2018-11-18 13:32] MED LIST changes: +BUDESONIDE EC3 MG PO; +FLAGYL500 M1 PO; +FLOVENT HFA12 G1 INH; +OXYCODONE HCL10 MG PO; +TYLENOL325 MG PO; +ZANAFLEX4 MG PO
[2018-11-18 14:08] LABS: URINE BILIRUBIN NEGATIVE (Negative); URINE BLOOD TRACE (Negative); URINE CLARITY CLEAR; URINE COLOR YELLOW; URINE GLUCOSE-RANDOM* 2+ (Negative); URINE KETONES NEGATIVE (Negative); URINE LEUKOCYTES-REFLEX NEGATIVE (Negative); URINE NITRITE-REFLEX NEGATIVE (Negative); URINE PROTEIN (DIPSTICK) TRACE (Negative); URINE SPECIFIC GRAVITY 1.015 (1.005-1.035); URINE UROBILINOGEN 0.2 E.U./dl (0.2-1.0)
[2018-11-18 15:35] LABS: ABSOLUTE NEUTROPHILS 4.3 thou/uL (1.4-8.2); BASOPHILS 0.6 % (0.0-2.0); EOSINOPHILS 2.5 % (0.0-3.0); HEMATOCRIT 40.9 % (37.0-47.0); HEMOGLOBIN 13.3 gm/dL (12.0-15.0); LYMPHOCYTES 18.4 % (24.0-44.0); MCH 26.6 pg (26.0-34.0); MCHC 32.7 g/dL (28.0-37.0); MCV 81.5 fL (80.0-100.0); MONOCYTES 11.7 % (1.0-8.0); PLATELET COUNT 237 thou/uL (150-400); POLYS 66.8 % (36.0-66.0); RBC 5.01 mil/uL (4.20-5.00); WBC 6.5 thou/uL (4.0-11.0)
[2018-11-18 15:43] LABS: CALCIUM 9.3 mg/dL (8.5-10.1); CREATININE 2.4 mg/dL (0.6-1.0); POTASSIUM 3.1 mmol/L (3.5-5.1)
[2018-11-18 15:49] LABS: TOTAL BILIRUBIN 0.4 mg/dL (<0.1-1.0); TOTAL PROTEIN 7.5 g/dL (6.4-8.2)
[2018-11-18] MEDS ORDERED: LANTUS100 UNIT/M SUBQ (16:42)
[2018-11-18 18:16] VITALS: BP 139/106
== END 2018-11-18 18:17 | disposition home or self-care (01) ==
LOC: ER 13:32
PROVIDERS: Emergency Medicine
DX: R10.84 Generalized abdominal pain (principal); I13.0 Hypertensive heart and chronic kidney disease with heart failure and stage 1 through stage 4 chronic kidney disease, or unspecified chronic kidney disease; N18.3 Chronic kidney disease, stage 3 (moderate); E11.22 Type 2 diabetes mellitus with diabetic chronic kidney disease; I50.9 Heart failure, unspecified; M19.90 Unspecified osteoarthritis, unspecified site; J45.909 Unspecified asthma, uncomplicated; F41.9 Anxiety disorder, unspecified; F31.9 Bipolar disorder, unspecified; E78.5 Hyperlipidemia, unspecified; Z87.891 Personal history of nicotine dependence; Z86.2 Personal history of diseases of the blood and blood-forming organs and certain disorders involving the immune mechanism; Z98.890 Other specified postprocedural states; Z88.8 Allergy status to other drugs, medicaments and biological substances; Z88.5 Allergy status to narcotic agent; Z88.0 Allergy status to penicillin; Z90.710 Acquired absence of both cervix and uterus; Z79.4 Long term (current) use of insulin

== ENCOUNTER 2019-01-22 13:48 | Inpatient (IN) | payer OTHER ==
[~2019-01-22] VITALS: Ht 167.6 cm; Wt 112.6 kg
[2019-01-22 13:49] VITALS: BP 174/126
[2019-01-22 14:36] LABS: URINE BILIRUBIN NEGATIVE (Negative); URINE BLOOD NEGATIVE (Negative); URINE CLARITY CLEAR; URINE COLOR YELLOW; URINE GLUCOSE-RANDOM* 3+ (Negative); URINE KETONES NEGATIVE (Negative); URINE LEUKOCYTES-REFLEX NEGATIVE (Negative); URINE NITRITE-REFLEX NEGATIVE (Negative); URINE PROTEIN (DIPSTICK) 1+ (Negative); URINE UROBILINOGEN 0.2 E.U./dl (0.2-1.0)
[2019-01-22 14:44] LABS: SQUAMOUS 0-3 Few /LPF (0-3)
[2019-01-22 14:45] LABS: CASTS None Seen /LPF (None Seen); CRYSTALS None Seen /LPF (None Seen); URINE RBC None Seen /HPF (0-2); URINE WBC-REFLEX 0-5 Rare /HPF (0-5)
[2019-01-22 15:02] LABS: ABSOLUTE NEUTROPHILS 3.8 thou/uL (1.4-8.2); BASOPHILS 0.8 % (0.0-2.0); EOSINOPHILS 1.3 % (0.0-3.0); LYMPHOCYTES 22.2 % (24.0-44.0); MCHC 32.6 g/dL (28.0-37.0); MCV 82.9 fL (80.0-100.0); MONOCYTES 10.2 % (1.0-8.0); PLATELET COUNT 189 thou/uL (150-400); POLYS 65.5 % (36.0-66.0); RBC 4.83 mil/uL (4.20-5.00); RDW 17.1 % (10.5-14.5); WBC 5.8 thou/uL (4.0-11.0)
[2019-01-22 15:11] LABS: CALCIUM 9.7 mg/dL (8.5-10.1); CREATININE 2.2 mg/dL (0.6-1.0)
[2019-01-22 15:17] LABS: ALBUMIN 3.3 g/dL (3.4-5.0); TOTAL BILIRUBIN 0.3 mg/dL (<0.1-1.0); TOTAL PROTEIN 7.9 g/dL (6.4-8.2)
[2019-01-22 20:31] VITALS: BP 204/126
--- NOTE | 2019-01-22 20:32 | NUR ---
HAND OFF TOOL PRINTED TO CCU AT THIS TIME
--- NOTE | 2019-01-22 20:37 | NUR ---
REPORT TO INPATIENT NURSE, CINDY AT THIS TIME. PATIENT AWAITING TRANSPORT TO CCU.
[2019-01-22 20:54] VITALS: BP 179/106
[2019-01-22 22:22] VITALS: BP 141/87
[2019-01-23] MEDS ORDERED: FUROSEMIDE 20 M20 M1 PO (00:14)
[2019-01-23] MEDS ORDERED: VALIUM5 MG PO (00:16)
[2019-01-23] MEDS ORDERED: KLOR-CON 1010 MEQ PO (00:16)
[2019-01-23 01:42] VITALS: BP 141/82
[2019-01-23 03:08] VITALS: BP 134/84
--- NOTE | 2019-01-23 03:49 | NUR ---
PT. ARRIVED AT FLOOR AROUND 2200; AOX4; C/O PAIN; 9/10; OVER ABDOMINAL AREA; PRN PAIN MEDICATION GIVEN; RE-ASSESSMENT; ST. DECREASE PAIN; NO C/O N/V; ST. HAVING DIARRHEA; BS 377; SCHEDULED INSULIN GIVEN; ADMISSION PERFORMED; MEDICATION RECONCILIATION PERFORMED; ASSESSMENT PERFORMED; ASSESSMENT CHARGED; EDUCATED ABOUT FALL PRECAUTIONS; ST. UNDERSTANDING; REFUSED BED ALARM; REFUSED SCDs; EDUCATED ABOUT THE IMPORTANCE; ST. UNDERSTANDING; STILL REFUSED; ASSESSMENT CHARGED; FOLLOWING POC; MONITORING; WILL PASS ON REPORT.
[2019-01-23 05:23] LABS: CALCIUM 8.7 mg/dL (8.5-10.1); CREATININE 1.8 mg/dL (0.6-1.0)
[2019-01-23 06:02] LABS: POTASSIUM 2.8 mmol/L (3.5-5.1)
[2019-01-23 08:30] VITALS: BP 160/72
[2019-01-23 11:00] VITALS: BP 137/85
[2019-01-23 16:20] VITALS: BP 134/83
[2019-01-23 18:05] LABS: MAGNESIUM 1.5 mg/dL (1.8-2.4); POTASSIUM 3.5 mmol/L (3.5-5.1)
--- NOTE | 2019-01-23 18:20 | NUR ---
PT CARE ASSUMED APPROX 0700. PT ALERT AND ORIENTED X4. DENIES SOA, N/V. REPORTS ABD PAIN 02/01. PAIN MANAGEMENT REGIMINE CHANGED PER DR ADAN. PT REPORTS INADEQUATE PAIN MANAGEMENT. DR ADAN AWARE. GI ALSO NOTIFIED. ONETIME DOSE OF TORDOL GIVEN AND PT REPORTED RELIEF AND HAS NOT REPORTED ANY PAIN SINCE THE ADMIN OF TORDOL. WILL CONTINUE TO ASSESS/REASSESS PAIN. VSS. BS ELEVATED. MANAGED WITH SSI DURING THIS SHIFT. PT TOLERATING CLR AND ADVANCED TO FULL LIQ. WILL MONITOR PT FOR TOLERANCE. PT NOT OUT OF BED THIS SHIFT. MAG REPLACED. WILL MONITOR REASSESSED LEVEL. NO DISTRESS NOTED.
--- NOTE | 2019-01-23 18:48 | NUR ---
REDRAW FOR MG+ REMAINED LOW. PT REPLACED PER PROTOCOL FOR A 2ND TIME THIS SHIFT.
[2019-01-23 19:55] VITALS: BP 118/80
[2019-01-24 04:45] VITALS: BP 139/80
[2019-01-24 06:03] LABS: CALCIUM 8.9 mg/dL (8.5-10.1); CREATININE 1.6 mg/dL (0.6-1.0); MAGNESIUM 1.6 mg/dL (1.8-2.4); POTASSIUM 3.4 mmol/L (3.5-5.1)
[2019-01-24 07:15] VITALS: BP 139/80
--- NOTE | 2019-01-24 07:18 | NUR ---
RE-WRITE NOTE; NOT SAVE ORIGINAL NOTE WRITTEN EARLIER; RECEIVED PT'S CARE AT 1900; PT. SITTING ON BED; aOX4; LAUGHING WHILE TALKING ON THE CELL PHONE; DURING ASSESSMENT GI AT THE BED SIDE; DIET CHANGED TO SOFT; PT. ABLE TO EAT SANDWICH; IV FLUIDS RATE REDUCE TO 80 MG/H; HS MEDICATION GIVEN; REFUSED STOOL SOFTNER; WHEN ASKED IF HAVE ANY PAIN; MOVED HEAD FROM RIDE TO LEFT; ST. "MAYBE I HAVE PAIN BECAUSE I HAVE NOT EATEN"; REFUSED BED ALARM ON; REFUSED YELLOW SUCKS WHILE ON BED; EDUCATED ABOUT FALL PREVENTION; ST. UNDERSTANDING; REFUSED IT; ABLE TO REST THROUGH THE NIGHT; REQUESTED PRN PAIN MEDICATION; GIVEN; DURING RE-ASSESSMENT PT. SLEEPING; ASSESSMENT CHARGED; FOLLOWING POC; MONITORING; PASSED ON REPORT TO LILIYA YOUSIF.
[2019-01-24 09:59] VITALS: BP 139/80
--- NOTE | 2019-01-24 10:37 | NUR ---
ASSUMED CARE AT 0700, SHIFT ASSESSMENT DONE, MEDS GIVEN, VSS. REPORTED PAIN, PER HOSPITALIST NO INDICATION FOR PAIN MED. NSR ON TELE. DISCHARGE ORDER RECEIVED, PERIPHERAL IV WAS TAKEN OUT. WILL CONTINUE TO ASSESS AND ASSIST WITH ADLs NEEDED.
== END 2019-01-24 11:00 | disposition home or self-care (01) | DRG 386 ==
LOC: ER 13:48 → EROBS 19:44 → 2N 19:44 → ENTRNSPT 01-24 10:45 → EDTRNSPTSTS 01-24 10:47 → 2N 01-24 11:00
PROVIDERS: Emergency Medicine; Nurse Practitioner Family; Physician Assistant; ADMIT Internal Medicine
DX: K50.90 Crohn's disease, unspecified, without complications (principal); I13.0 Hypertensive heart and chronic kidney disease with heart failure and stage 1 through stage 4 chronic kidney disease, or unspecified chronic kidney disease; Z96.653 Presence of artificial knee joint, bilateral; N18.3 Chronic kidney disease, stage 3 (moderate); I50.9 Heart failure, unspecified; E11.22 Type 2 diabetes mellitus with diabetic chronic kidney disease; J45.909 Unspecified asthma, uncomplicated; F41.9 Anxiety disorder, unspecified; F31.9 Bipolar disorder, unspecified; E78.5 Hyperlipidemia, unspecified; E87.6 Hypokalemia; D64.9 Anemia, unspecified; I16.0 Hypertensive urgency; Z90.49 Acquired absence of other specified parts of digestive tract; Z98.891 History of uterine scar from previous surgery; Z86.73 Personal history of transient ischemic attack (TIA), and cerebral infarction without residual deficits; Z90.710 Acquired absence of both cervix and uterus; Z88.6 Allergy status to analgesic agent; Z88.0 Allergy status to penicillin; Z88.8 Allergy status to other drugs, medicaments and biological substances; Z79.84 Long term (current) use of oral hypoglycemic drugs; Z79.4 Long term (current) use of insulin; Z79.51 Long term (current) use of inhaled steroids; Z79.899 Other long term (current) drug therapy
CPT/HCPCS: 10081

== ENCOUNTER 2019-03-02 17:27 | Emergency (ER) | payer OTHER ==
[~2019-03-02] VITALS: Ht 167.6 cm; Wt 108.9 kg
[~2019-03-02 17:27] MED LIST changes: +FUROSEMIDE 20 M20 M1 PO; +KLOR-CON 1010 MEQ PO
[2019-03-02 17:42] LABS: URINE BILIRUBIN NEGATIVE (Negative); URINE BLOOD NEGATIVE (Negative); URINE CLARITY CLEAR; URINE COLOR YELLOW; URINE GLUCOSE-RANDOM* 3+ (Negative); URINE KETONES NEGATIVE (Negative); URINE LEUKOCYTES NEGATIVE (Negative); URINE NITRITE NEGATIVE (Negative); URINE PROTEIN (DIPSTICK) NEGATIVE (Negative); URINE SPECIFIC GRAVITY <= 1.005 (1.005-1.035); URINE UROBILINOGEN 0.2 E.U./dl (0.2-1.0)
[2019-03-02 18:26] LABS: ABSOLUTE NEUTROPHILS 3.6 thou/uL (1.4-8.2); BASOPHILS 0.6 % (0.0-2.0); EOSINOPHILS 1.5 % (0.0-3.0); HEMATOCRIT 38.3 % (37.0-47.0); HEMOGLOBIN 12.3 gm/dL (12.0-15.0); LYMPHOCYTES 27.2 % (24.0-44.0); MCH 26.6 pg (26.0-34.0); MCHC 32.1 g/dL (28.0-37.0); MCV 82.8 fL (80.0-100.0); MONOCYTES 11.1 % (1.0-8.0); PLATELET COUNT 222 thou/uL (150-400); POLYS 59.6 % (36.0-66.0); RBC 4.63 mil/uL (4.20-5.00); RDW 17.2 % (10.5-14.5)
[2019-03-02 18:33] LABS: ANION GAP 9 mmol/L (7-16); BUN 32 mg/dL (7-18); CALCIUM 9.6 mg/dL (8.5-10.1); CHLORIDE 97 mmol/L (98-107); CO2 24 mmol/L (21-32); CREATININE 2.3 mg/dL (0.6-1.0); GLUCOSE 444 mg/dL (74-106); POTASSIUM 3.6 mmol/L (3.5-5.1); SODIUM 130 mmol/L (136-145)
[2019-03-02 18:39] LABS: ALBUMIN 3.4 g/dL (3.4-5.0); LIPASE 265 U/L (73-393); SGOT < 5 U/L (15-37); SGPT 9 U/L (30-65); TOTAL BILIRUBIN 0.3 mg/dL (<0.1-1.0); TOTAL PROTEIN 8.2 g/dL (6.4-8.2)
[2019-03-02 20:36] VITALS: BP 133/96
--- NOTE | 2019-03-03 08:15 | EKG ---
[place] [address] [place] [address] ELECTROCARDIOGRAM REPORT Name: CANDIDO FISH [id number] ������������������ Admission: 03/02/19 ������������������ Attend Phys: Discharge: 03/02/19 ������������������ Date of : 69 Report #: [id number] ����������������������������������������������������������������� [id number] THIS REPORT FOR: //name// [facility] ED Test Date: 2019-03-02 Test Time: 18:47:07 Pat Name: CANDIDO FISH Department: Room: Gender: F Manager Code: ROSA : 1965 Requested By: Alejandro Salcedo Order Number: [id number] MD: Saman Leos Measurements Intervals [place] Rate: 77 P: 69 [place]: 127 QRS: -15 QRSD: 100 T: 60 QT: 409 QTc: 463 Interpretive Statements Sinus rhythm Probable left atrial enlargement Nonspecific ST and T wave abnormality Compared to ECG 10/21/2018 15:41:07 No significant change was found Electronically Signed On 03-03-2019 8:15:44 CDT by Saman Leos [email or web address] ��������������������������������������������� <ELECTRONICALLY SIGNED> ���������������������������������������� By: Saman Leos MD, [facility] ��������������������������������������������� 03/03/1915 46 46 Saman Leos MD, [facility] /EPI
== END 2019-03-02 20:30 | disposition left against medical advice (07) ==
LOC: ER 17:27
PROVIDERS: Emergency Medicine
DX: R10.30 Lower abdominal pain, unspecified (principal); M25.512 Pain in left shoulder; N18.3 Chronic kidney disease, stage 3 (moderate); E11.22 Type 2 diabetes mellitus with diabetic chronic kidney disease; I12.9 Hypertensive chronic kidney disease with stage 1 through stage 4 chronic kidney disease, or unspecified chronic kidney disease; K50.90 Crohn's disease, unspecified, without complications; I50.20 Unspecified systolic (congestive) heart failure; J45.909 Unspecified asthma, uncomplicated; F41.9 Anxiety disorder, unspecified; F31.9 Bipolar disorder, unspecified; E78.5 Hyperlipidemia, unspecified; Z90.710 Acquired absence of both cervix and uterus; Z96.653 Presence of artificial knee joint, bilateral; Z86.73 Personal history of transient ischemic attack (TIA), and cerebral infarction without residual deficits; Z86.2 Personal history of diseases of the blood and blood-forming organs and certain disorders involving the immune mechanism; Z98.890 Other specified postprocedural states; Z79.4 Long term (current) use of insulin; Z87.891 Personal history of nicotine dependence; Z88.8 Allergy status to other drugs, medicaments and biological substances; Z88.6 Allergy status to analgesic agent; Z88.0 Allergy status to penicillin

== ENCOUNTER 2019-03-18 12:10 | Emergency (ER) | payer OTHER ==
[~2019-03-18] VITALS: Ht 167.6 cm; Wt 108.9 kg
[2019-03-18 13:14] LABS: ABSOLUTE NEUTROPHILS 3.4 thou/uL (1.4-8.2); BASOPHILS 0.6 % (0.0-2.0); EOSINOPHILS 1.1 % (0.0-3.0); HEMATOCRIT 35.9 % (37.0-47.0); HEMOGLOBIN 11.4 gm/dL (12.0-15.0); LYMPHOCYTES 20.1 % (24.0-44.0); MCH 26.4 pg (26.0-34.0); MCHC 31.7 g/dL (28.0-37.0); MCV 83.2 fL (80.0-100.0); MONOCYTES 9.1 % (1.0-8.0); PLATELET COUNT 202 thou/uL (150-400); POLYS 69.1 % (36.0-66.0); RBC 4.32 mil/uL (4.20-5.00); RDW 17.1 % (10.5-14.5); WBC 4.9 thou/uL (4.0-11.0)
[2019-03-18 13:23] LABS: ANION GAP 6 mmol/L (7-16); BUN 24 mg/dL (7-18); CALCIUM 9.6 mg/dL (8.5-10.1); CHLORIDE 98 mmol/L (98-107); CO2 28 mmol/L (21-32); CREATININE 2.2 mg/dL (0.6-1.0); GLUCOSE 470 mg/dL (74-106); SODIUM 132 mmol/L (136-145)
[2019-03-18 13:35] LABS: ALBUMIN 2.9 g/dL (3.4-5.0); LIPASE 140 U/L (73-393); SGOT 9 U/L (15-37); SGPT 12 U/L (30-65); TOTAL BILIRUBIN 0.2 mg/dL (<0.1-1.0); TOTAL PROTEIN 7.3 g/dL (6.4-8.2); TROPONIN-I <0.06 ng/mL (<0.06)
[2019-03-18 13:37] LABS: URINE BILIRUBIN NEGATIVE (Negative); URINE BLOOD NEGATIVE (Negative); URINE CLARITY CLEAR; URINE COLOR YELLOW; URINE GLUCOSE-RANDOM* 3+ (Negative); URINE KETONES NEGATIVE (Negative); URINE LEUKOCYTES-REFLEX NEGATIVE (Negative); URINE NITRITE-REFLEX NEGATIVE (Negative); URINE PROTEIN (DIPSTICK) TRACE (Negative); URINE SPECIFIC GRAVITY <= 1.005 (1.005-1.035); URINE UROBILINOGEN 0.2 E.U./dl (0.2-1.0)
[2019-03-18 15:15] VITALS: BP 166/97
--- NOTE | 2019-03-19 08:01 | EKG ---
[place] [address] [facility] [employer] [place] [address] ELECTROCARDIOGRAM REPORT Name: CANDIDO FISH [facility] [id number] Admission: 03/18/19 Attend Phys: Discharge: 03/18/19 Date of : [birth year] Report #: [id number] THIS REPORT FOR: //name// [facility] ED Test Date: 2019-03-18 Test Time: 13:15:57 Pat Name: CANDIDO FISH Department: Room: Gender: F Clinical Trial Associate: : 1965 Requested By: Alvin Echevarria Order Number: [id number] MD: Mike Walter Measurements Intervals [place] Rate: 53 P: 18 MD: 129 QRS: -8 QRSD: 103 T: 2 QT: 470 QTc: 442 Interpretive Statements Sinus rhythm Probable left ventricular hypertrophy Borderline T abnormalities, inferior leads Compared to ECG 03/02/2019 18:47:07 T-wave abnormality now present ST (T wave) deviation no longer present Electronically Signed On 03-19-2019 8:01:38 CDT by Mike Walter [email or web address] <ELECTRONICALLY SIGNED> By: Mike Walter MD 03/19/19800 1315 14 Mike Walter MD /MP
== END 2019-03-18 15:15 | disposition home or self-care (01) ==
LOC: ER 12:10
PROVIDERS: Emergency Medicine
DX: R10.84 Generalized abdominal pain (principal); R11.2 Nausea with vomiting, unspecified; I13.0 Hypertensive heart and chronic kidney disease with heart failure and stage 1 through stage 4 chronic kidney disease, or unspecified chronic kidney disease; I50.9 Heart failure, unspecified; N18.3 Chronic kidney disease, stage 3 (moderate); E11.22 Type 2 diabetes mellitus with diabetic chronic kidney disease; J45.909 Unspecified asthma, uncomplicated; F31.9 Bipolar disorder, unspecified; F41.9 Anxiety disorder, unspecified; E78.5 Hyperlipidemia, unspecified; K50.90 Crohn's disease, unspecified, without complications; Z86.2 Personal history of diseases of the blood and blood-forming organs and certain disorders involving the immune mechanism; Z86.73 Personal history of transient ischemic attack (TIA), and cerebral infarction without residual deficits; Z90.710 Acquired absence of both cervix and uterus; Z98.890 Other specified postprocedural states; Z88.5 Allergy status to narcotic agent; Z88.0 Allergy status to penicillin; Z88.8 Allergy status to other drugs, medicaments and biological substances; Z87.891 Personal history of nicotine dependence

== ENCOUNTER 2019-04-29 15:28 | Inpatient (IN) | payer OTHER ==
[~2019-04-29] VITALS: Ht 167.6 cm; Wt 99.3 kg
[2019-04-29 15:30] VITALS: BP 152/98
[2019-04-29 16:22] LABS: HCO3 26.4 mmol/L (22.0-26.0); PCO2 45.4 mmHg (35.0-45.0); PO2 58.5 mmHg (80.0-100.0); pH 7.383 (7.360-7.450); sO2 89.8 % (92.0-98.0)
[2019-04-29 16:39] LABS: HEMATOCRIT 38.1 % (37.0-47.0); HEMOGLOBIN 12.5 gm/dL (12.0-15.0); MCH 27.2 pg (26.0-34.0); MCHC 32.9 g/dL (28.0-37.0); MCV 82.6 fL (80.0-100.0); PLATELET COUNT 164 thou/uL (150-400); RBC 4.61 mil/uL (4.20-5.00); RDW 17.1 % (10.5-14.5); WBC 4.4 thou/uL (4.0-11.0)
[2019-04-29 16:54] LABS: ABSOLUTE NEUTROPHILS 2.9 thou/uL (1.4-8.2); PLATELET ESTIMATE NORMAL
[2019-04-29 17:00] LABS: ALBUMIN 3.2 g/dL (3.4-5.0); ANION GAP 9 mmol/L (7-16); BUN 22 mg/dL (7-18); CALCIUM 9.8 mg/dL (8.5-10.1); CHLORIDE 89 mmol/L (98-107); CO2 28 mmol/L (21-32); CREATININE 2.6 mg/dL (0.6-1.0); DIRECT BILIRUBIN 0.1 mg/dL (<0.1-0.3); LIPASE 112 U/L (73-393); POTASSIUM 3.3 mmol/L (3.5-5.1); SGOT 5 U/L (15-37); SGPT 7 U/L (30-65); SODIUM 126 mmol/L (136-145); TOTAL BILIRUBIN 0.3 mg/dL (<0.1-1.0); TROPONIN-I <0.06 ng/mL (<0.06)
[2019-04-29 17:08] LABS: GLUCOSE 532 mg/dL (74-106)
--- NOTE | 2019-04-29 17:10 | EKG ---
[place] [address] [place] [address] ELECTROCARDIOGRAM REPORT Name: CANDIDO FIHS Room #: [facility]#: [id number] Admission: 04/29/19 Attend Phys: Discharge: Date of : [birth year] Report #: [id number] THIS REPORT FOR: //name// [facility] ED Test Date: 2019-04-29 Test Time: 15:33:05 Pat Name: CANDIDO FISH Department: Room: Gender: F Manager Trade Marketing: ROSA : 1965 Requested By: Abimael Tillman Order Number: [id number] MD: Saman Leos Measurements Intervals [place] Rate: 78 P: 61 ME: 135 QRS: -15 QRSD: 104 T: QT: 415 QTc: 473 Interpretive Statements Sinus rhythm Left ventricular hypertrophy Nonspecific ST and T wave abnormality Baseline wander in lead(s) V2 Compared to ECG 03/18/2019 13:15:57 Nonspecific change in the ST and T-wave segments Electronically Signed On 04-29-2019 17:10:05 DIGITAL COMMUNICATIONS MANAGER by Saman Leos [email or web address] <ELECTRONICALLY SIGNED> By: Saman Leos MD, [facility] 04/29/19 1710 1533 153 Saman Leos MD, [facility] /EPI
[2019-04-29 17:54] LABS: URINE BILIRUBIN NEGATIVE (Negative); URINE BLOOD 1+ (Negative); URINE CLARITY CLEAR; URINE COLOR YELLOW; URINE GLUCOSE-RANDOM* 3+ (Negative); URINE KETONES NEGATIVE (Negative); URINE LEUKOCYTES-REFLEX TRACE (Negative); URINE NITRITE-REFLEX NEGATIVE (Negative); URINE PROTEIN (DIPSTICK) NEGATIVE (Negative); URINE UROBILINOGEN 0.2 E.U./dl (0.2-1.0)
[2019-04-29 18:01] LABS: AMP/METHAMP Negative (Negative); BARBITURATES Negative (Negative); BENZODIAZEPINES POSITIVE (Negative); COCAINE POSITIVE (Negative); METHADONE Negative (Negative); OPIATES POSITIVE (Negative); PCP Negative (Negative)
[2019-04-29 18:05] LABS: BACTERIA-REFLEX 1-9 Few /HPF (None Seen); CASTS None Seen /LPF (None Seen); CRYSTALS None Seen /LPF (None Seen); SQUAMOUS 4-10 Moderate /LPF (0-3); URINE RBC 0-2 Rare /HPF (0-2); URINE WBC-REFLEX 0-5 Rare /HPF (0-5)
[2019-04-29] MEDS ORDERED: TIZANIDINE4 MG/1 TA1 PO (19:57)
[2019-04-29 20:35] VITALS: BP 159/113
[2019-04-29 20:36] VITALS: BP 159/113
[2019-04-29 21:56] VITALS: BP 144/89
--- NOTE | 2019-04-29 22:03 | NUR ---
LEFT MESSAGE WITH ARON AGUSTINA LISTED ON PATIENT CHART NEXT OF KIN TO NOTIFY FAMILY OF ROOM ASSIGNMENT 219.
[2019-04-30 00:18] VITALS: BP 132/93
--- NOTE | 2019-04-30 00:54 | NUR ---
PT ARRIVED FROM ER AT APPROX 2150. VSS. PT A&0X4. PT WAS COMPLAINING OF PAIN, PRAVEEN WOMACK NOTIFIED, ONETIME ORDER OF TORADOL IM RX AND ADMINISTERED. PT SLEPT, ADMISSION ASSESSMENT DONE, PT IS SR ON THE MONITOR, PT IS STABLE, SLEEPING AT THE MOMENT, WILL CONTINUE TO MONITOR PER POC.
[2019-04-30 06:26] VITALS: BP 153/107
[2019-04-30 07:07] VITALS: BP 164/104
[2019-04-30 10:47] VITALS: BP 169/109
--- NOTE | 2019-04-30 10:50 | NUR ---
RECEIVED PT'S CARE AROND 0715; PT. ON BED RESTING WITH EYES CLOSED; ANSWER BACK TO NAME; DURING ASSESSMENT NO C/O PAIN; BS WNL; NO INSULIN GIVEN; AM MEDICATIONS GIVEN; NOTIFIED ABOUT D/C ORDERS; ST. UNDERSTANDING; ASSESSMENT CHARGED; FOLLOWING POC; D/C AT HOME;
[2019-04-30 11:41] VITALS: BP 169/109
== END 2019-04-30 11:30 | disposition home or self-care (01) | DRG 312 ==
LOC: ER 15:28 → EROBS 18:37 → 2N 21:26
PROVIDERS: Emergency Medicine; ADMIT Hospitalist
DX: R55 Syncope and collapse (principal); F11.20 Opioid dependence, uncomplicated; I13.0 Hypertensive heart and chronic kidney disease with heart failure and stage 1 through stage 4 chronic kidney disease, or unspecified chronic kidney disease; E11.22 Type 2 diabetes mellitus with diabetic chronic kidney disease; J45.909 Unspecified asthma, uncomplicated; F31.9 Bipolar disorder, unspecified; F41.9 Anxiety disorder, unspecified; E78.5 Hyperlipidemia, unspecified; N18.3 Chronic kidney disease, stage 3 (moderate); I50.9 Heart failure, unspecified; Z96.653 Presence of artificial knee joint, bilateral; E11.65 Type 2 diabetes mellitus with hyperglycemia; M06.9 Rheumatoid arthritis, unspecified; Z88.5 Allergy status to narcotic agent; Z88.0 Allergy status to penicillin; Z88.8 Allergy status to other drugs, medicaments and biological substances; Z79.4 Long term (current) use of insulin; Z86.73 Personal history of transient ischemic attack (TIA), and cerebral infarction without residual deficits; Z87.19 Personal history of other diseases of the digestive system; Z90.710 Acquired absence of both cervix and uterus
CPT/HCPCS: 10081

== ENCOUNTER 2019-07-22 17:23 | Emergency (ER) | payer OTHER ==
[~2019-07-22] VITALS: Ht 167.6 cm; Wt 100.2 kg
--- NOTE | ~2019-07-22 | EKG ---
[place] [address] [facility] [place] [address] ELECTROCARDIOGRAM REPORT Name: CANDIDO FISH Room #: [facility] Reji#: [id number] Admission: 07/22/19 Attend Phys: Discharge: 07/22/19 Date of : [birth year] Report #: [id number] THIS REPORT FOR: //name// [facility] ED Test Date: 2019-07-22 Test Time: 21:36:54 Pat Name: CANDIDO FISH Department: Room: Gender: F Human Resource Officer: FEILX : 1965 Requested By: Cindy Green Order Number: [id number] MD: Measurements Intervals [place] Rate: 66 P: 61 DE: 131 QRS: 1 QRSD: 101 T: 40 QT: 449 QTc: 471 Interpretive Statements Sinus rhythm Compared to ECG 04/29/2019 15:33:05 Left ventricular hypertrophy no longer present ST (T wave) deviation no longer present [email or web address] By: 35 35 Epiphany Epiphany, /EPI
[~2019-07-22 17:23] MED LIST changes: +TIZANIDINE4 MG/1 TA1 PO
[2019-07-22] MEDS ORDERED: PERCOCET 10-321 EAC1 PO (17:48)
[2019-07-22 18:02] LABS: ABSOLUTE NEUTROPHILS 3.4 thou/uL (1.4-8.2); BASOPHILS 0.6 % (0.0-2.0); EOSINOPHILS 1.7 % (0.0-3.0); HEMATOCRIT 40.2 % (37.0-47.0); HEMOGLOBIN 12.9 gm/dL (12.0-15.0); LYMPHOCYTES 26.9 % (24.0-44.0); MCH 27.2 pg (26.0-34.0); MONOCYTES 9.8 % (1.0-8.0); PLATELET COUNT 248 thou/uL (150-400); RBC 4.72 mil/uL (4.20-5.00); RDW 17.5 % (10.5-14.5); WBC 5.5 thou/uL (4.0-11.0)
[2019-07-22 18:08] LABS: ANION GAP 8 mmol/L (7-16); BUN 28 mg/dL (7-18); CALCIUM 9.7 mg/dL (8.5-10.1); CHLORIDE 101 mmol/L (98-107); CO2 25 mmol/L (21-32); CREATININE 2.1 mg/dL (0.6-1.0); GLUCOSE 242 mg/dL (74-106); SODIUM 134 mmol/L (136-145)
[2019-07-22 18:19] LABS: ALBUMIN 3.6 g/dL (3.4-5.0); SGOT < 5 U/L (15-37); SGPT 13 U/L (30-65); TOTAL BILIRUBIN 0.2 mg/dL (<0.1-1.0); TOTAL PROTEIN 8.5 g/dL (6.4-8.2); TROPONIN-I <0.06 ng/mL (<0.06)
[2019-07-22 21:45] VITALS: BP 148/95
--- NOTE | 2019-07-23 07:59 | EKG ---
[place] [address] [facility] [place] [address] ELECTROCARDIOGRAM REPORT Name: POLINACHERRINANCY Ugo [facility] [id number] Admission: 07/22/19 Attend Phys: Discharge: 07/22/19 Date of : [birth year] Report #: [id number] THIS REPORT FOR: //name// [facility] ED Test Date: 2019-07-22 Test Time: 17:27:01 Pat Name: CANDIDO FISH Department: Room: Gender: F Concreting Supervisor: ABDULLAHI : 1965 Requested By: Cindy Green Order Number: [id number] MD: Mike Walter Measurements Intervals [place] Rate: 69 P: 54 MS: 133 QRS: -9 QRSD: 91 T: 20 QT: 412 QTc: 442 Interpretive Statements Sinus rhythm Probable left atrial enlargement Borderline repolarization abnormality Compared to ECG 04/29/2019 15:33:05 Left ventricular hypertrophy no longer present ST (T wave) deviation no longer present Electronically Signed On 07-23-2019 7:58:42 EARLY INTERVENTION SCHOOL PSYCHOLOGIST by Mike Walter [email or web address] <ELECTRONICALLY SIGNED> By: Mike Walter MD 07/23/19 0758 26 26 Mike Walter MD /[facility]
== END 2019-07-22 21:46 | disposition home or self-care (01) ==
LOC: ER 17:23
PROVIDERS: Emergency Medicine
DX: R07.89 Other chest pain (principal); E11.22 Type 2 diabetes mellitus with diabetic chronic kidney disease; I13.0 Hypertensive heart and chronic kidney disease with heart failure and stage 1 through stage 4 chronic kidney disease, or unspecified chronic kidney disease; N18.3 Chronic kidney disease, stage 3 (moderate); I50.9 Heart failure, unspecified; E78.5 Hyperlipidemia, unspecified; F41.9 Anxiety disorder, unspecified; F31.9 Bipolar disorder, unspecified; Z87.891 Personal history of nicotine dependence; Z88.6 Allergy status to analgesic agent; Z88.0 Allergy status to penicillin; Z88.8 Allergy status to other drugs, medicaments and biological substances; Z86.73 Personal history of transient ischemic attack (TIA), and cerebral infarction without residual deficits; Z90.710 Acquired absence of both cervix and uterus

== ENCOUNTER 2019-12-04 16:58 | Emergency (ER) | payer OTHER ==
[~2019-12-04] VITALS: Ht 167.6 cm; Wt 104.3 kg
[~2019-12-04 16:58] MED LIST changes: +PERCOCET 10-321 EAC1 PO
[2019-12-04 17:31] LABS: URINE BILIRUBIN NEGATIVE (Negative); URINE BLOOD NEGATIVE (Negative); URINE CLARITY CLEAR; URINE COLOR YELLOW; URINE GLUCOSE-RANDOM* 2+ (Negative); URINE KETONES NEGATIVE (Negative); URINE LEUKOCYTES-REFLEX NEGATIVE (Negative); URINE NITRITE-REFLEX NEGATIVE (Negative); URINE PROTEIN (DIPSTICK) NEGATIVE (Negative); URINE UROBILINOGEN 0.2 E.U./dl (0.2-1.0)
[2019-12-04] MEDS ORDERED: NORCO 5-325 TA1 EAC1 PO (19:13)
[2019-12-04] MEDS ORDERED: PREDNISONE 20 M20 MG PO (19:13)
[2019-12-04 19:24] VITALS: BP 116/71
== END 2019-12-04 19:31 | disposition home or self-care (01) ==
LOC: ER 16:58
PROVIDERS: Physician Assistant
DX: M77.9 Enthesopathy, unspecified (principal); E66.9 Obesity, unspecified; I12.9 Hypertensive chronic kidney disease with stage 1 through stage 4 chronic kidney disease, or unspecified chronic kidney disease; E11.22 Type 2 diabetes mellitus with diabetic chronic kidney disease; N18.9 Chronic kidney disease, unspecified; E78.5 Hyperlipidemia, unspecified; J45.909 Unspecified asthma, uncomplicated; Z87.891 Personal history of nicotine dependence; Z88.0 Allergy status to penicillin; Z88.5 Allergy status to narcotic agent; Z88.8 Allergy status to other drugs, medicaments and biological substances; Z79.899 Other long term (current) drug therapy; Z79.4 Long term (current) use of insulin; Z86.73 Personal history of transient ischemic attack (TIA), and cerebral infarction without residual deficits; Z90.710 Acquired absence of both cervix and uterus

== ENCOUNTER 2019-12-17 13:23 | Emergency (ER) | payer OTHER ==
[~2019-12-17] VITALS: Ht 167.6 cm; Wt 104.3 kg
[~2019-12-17 13:23] MED LIST changes: +NORCO 5-325 TA1 EAC1 PO
[2019-12-17 16:43] LABS: URINE BILIRUBIN NEGATIVE (Negative); URINE BLOOD TRACE (Negative); URINE CLARITY CLEAR; URINE COLOR YELLOW; URINE GLUCOSE-RANDOM* 2+ (Negative); URINE KETONES NEGATIVE (Negative); URINE LEUKOCYTES-REFLEX NEGATIVE (Negative); URINE NITRITE-REFLEX NEGATIVE (Negative); URINE PROTEIN (DIPSTICK) NEGATIVE (Negative); URINE UROBILINOGEN 0.2 E.U./dl (0.2-1.0)
[2019-12-17 16:59] LABS: ABSOLUTE NEUTROPHILS 2.5 thou/uL (1.4-8.2); BASOPHILS 0.9 % (0.0-2.0); EOSINOPHILS 2.2 % (0.0-3.0); HEMATOCRIT 39.5 % (37.0-47.0); LYMPHOCYTES 31.3 % (24.0-44.0); MCH 27.9 pg (26.0-34.0); MCV 84.5 fL (80.0-100.0); MONOCYTES 11.4 % (1.0-8.0); PLATELET COUNT 222 thou/uL (150-400); POLYS 54.2 % (36.0-66.0); RBC 4.67 mil/uL (4.20-5.00); RDW 18.5 % (10.5-14.5); WBC 4.6 thou/uL (4.0-11.0)
[2019-12-17 17:18] LABS: CREATININE 2.2 mg/dL (0.6-1.0); POTASSIUM 3.3 mmol/L (3.5-5.1); TOTAL BILIRUBIN 0.3 mg/dL (0.2-1.0); TOTAL PROTEIN 7.2 g/dL (6.4-8.2)
[2019-12-17] MEDS ORDERED: NORCO 5-325 TA1 EAC1 PO (18:55)
[2019-12-17] MEDS ORDERED: LEVSIN0.125 MG PO (18:55)
[2019-12-17 19:16] VITALS: BP 160/84
== END 2019-12-17 19:38 | disposition home or self-care (01) ==
LOC: ER 13:23
PROVIDERS: Emergency Medicine
DX: R10.84 Generalized abdominal pain (principal); I13.0 Hypertensive heart and chronic kidney disease with heart failure and stage 1 through stage 4 chronic kidney disease, or unspecified chronic kidney disease; E11.22 Type 2 diabetes mellitus with diabetic chronic kidney disease; N18.3 Chronic kidney disease, stage 3 (moderate); I50.9 Heart failure, unspecified; E78.5 Hyperlipidemia, unspecified; Z90.710 Acquired absence of both cervix and uterus; Z86.73 Personal history of transient ischemic attack (TIA), and cerebral infarction without residual deficits; Z87.891 Personal history of nicotine dependence; Z79.899 Other long term (current) drug therapy; Z88.0 Allergy status to penicillin; Z88.5 Allergy status to narcotic agent; Z88.8 Allergy status to other drugs, medicaments and biological substances

== ENCOUNTER 2020-01-11 12:00 | Emergency (ER) | payer OTHER ==
[~2020-01-11] VITALS: Ht 167.6 cm; Wt 104.3 kg
[2020-01-11 12:33] LABS: AMP/METHAMP Negative (Negative); BARBITURATES Negative (Negative); BENZODIAZEPINES Negative (Negative); COCAINE POSITIVE (Negative); METHADONE Negative (Negative); OPIATES Negative (Negative); PCP Negative (Negative)
[2020-01-11] MEDS ORDERED: NAPROSYN500 MG PO (13:08)
[2020-01-11] MEDS ORDERED: NORFLEX100 MG PO (13:08)
[2020-01-11 13:59] VITALS: BP 149/97
--- NOTE | 2020-01-12 08:24 | EKG ---
[facility] [place] [address] ELECTROCARDIOGRAM REPORT Name: CANDIDO FISH Room #: DEP [facility]#: [id number] Admission: 01/11/20 Attend Phys: Discharge: 01/11/20 Date of : [birth year] Report #: [id number] THIS REPORT FOR: cc: FAM - No family physician/PCP FAM - No family physician/PCP Saman Leos MD [facility] THIS REPORT FOR: //name// [facility] ED Test Date: 2020-01-11 Test Time: 13:04:35 Pat Name: CANDIDO FISH Department: Room: Gender: Station Installer And Repairer: guillermina : 1965 Requested By: Abimael Tillman Order Number: [id number] MD: Saman Leos Measurements Intervals [place] Rate: 74 P: 78 [place]: 124 QRS: -12 QRSD: 128 T: -17 QT: 434 QTc: 482 Interpretive Statements Sinus rhythm Nonspecific ST and T wave abnormality Compared to ECG 07/22/2019 21:36:[address] and T wave abnormality is now present Electronically Signed On 01-12-2020 8:24:14 CDT by Saman Leos [email or web address] <ELECTRONICALLY SIGNED> By: Saman Leos MD, [facility] 01/12/20 0824 1304 1304 Saman Leos MD, [facility] /EPI
== END 2020-01-11 14:00 | disposition home or self-care (01) ==
LOC: ER 12:00
PROVIDERS: Emergency Medicine
DX: G89.4 Chronic pain syndrome (principal); M54.6 Pain in thoracic spine; F14.10 Cocaine abuse, uncomplicated; M54.2 Cervicalgia; J45.909 Unspecified asthma, uncomplicated; E78.5 Hyperlipidemia, unspecified; I13.0 Hypertensive heart and chronic kidney disease with heart failure and stage 1 through stage 4 chronic kidney disease, or unspecified chronic kidney disease; E11.22 Type 2 diabetes mellitus with diabetic chronic kidney disease; N18.3 Chronic kidney disease, stage 3 (moderate); I50.9 Heart failure, unspecified; Z86.73 Personal history of transient ischemic attack (TIA), and cerebral infarction without residual deficits; Z86.2 Personal history of diseases of the blood and blood-forming organs and certain disorders involving the immune mechanism; Z90.710 Acquired absence of both cervix and uterus; Z87.891 Personal history of nicotine dependence; Z79.899 Other long term (current) drug therapy; Z79.4 Long term (current) use of insulin; Z88.0 Allergy status to penicillin; Z88.5 Allergy status to narcotic agent; Z88.8 Allergy status to other drugs, medicaments and biological substances

== ENCOUNTER 2020-02-12 15:26 | Emergency (ER) | payer OTHER ==
[~2020-02-12] VITALS: Ht 167.6 cm; Wt 106.6 kg
[~2020-02-12 15:26] MED LIST changes: +NORFLEX100 MG PO
[2020-02-12 16:32] LABS: URINE BILIRUBIN NEGATIVE (Negative); URINE BLOOD NEGATIVE (Negative); URINE CLARITY CLEAR; URINE COLOR YELLOW; URINE GLUCOSE-RANDOM* 3+ (Negative); URINE KETONES NEGATIVE (Negative); URINE LEUKOCYTES-REFLEX NEGATIVE (Negative); URINE NITRITE-REFLEX NEGATIVE (Negative); URINE PROTEIN (DIPSTICK) TRACE (Negative); URINE SPECIFIC GRAVITY 1.015 (1.005-1.035); URINE UROBILINOGEN 0.2 E.U./dl (0.2-1.0)
[2020-02-12 17:15] LABS: BASOPHILS 0.6 % (0.0-2.0); EOSINOPHILS 2.5 % (0.0-3.0); HEMATOCRIT 36.9 % (37.0-47.0); HEMOGLOBIN 12.2 gm/dL (12.0-15.0); LYMPHOCYTES 28.5 % (24.0-44.0); MCH 27.6 pg (26.0-34.0); MCHC 33.1 g/dL (28.0-37.0); MCV 83.4 fL (80.0-100.0); MONOCYTES 11.7 % (1.0-8.0); PLATELET COUNT 207 thou/uL (150-400); POLYS 56.7 % (36.0-66.0); RBC 4.43 mil/uL (4.20-5.00); RDW 16.9 % (10.5-14.5); WBC 5.3 thou/uL (4.0-11.0)
[2020-02-12 17:20] LABS: ANION GAP 8 mmol/L (7-16); BUN 21 mg/dL (7-18); CALCIUM 8.7 mg/dL (8.5-10.1); CHLORIDE 98 mmol/L (98-107); CO2 27 mmol/L (21-32); CREATININE 2.2 mg/dL (0.6-1.0); GLUCOSE 395 mg/dL (74-106); SODIUM 133 mmol/L (136-145)
[2020-02-12 17:26] LABS: ALBUMIN 2.8 g/dL (3.4-5.0); DIRECT BILIRUBIN < 0.1 mg/dL (<0.1-0.2); LIPASE 163 U/L (73-393); SGOT 5 U/L (15-37); SGPT < 6 U/L (30-65); TOTAL BILIRUBIN 0.2 mg/dL (0.2-1.0); TOTAL PROTEIN 7.3 g/dL (6.4-8.2)
[2020-02-12 17:34] LABS: AMP/METHAMP Negative (Negative); BARBITURATES Negative (Negative); BENZODIAZEPINES Negative (Negative); COCAINE POSITIVE (Negative); METHADONE Negative (Negative); OPIATES Negative (Negative); PCP Negative (Negative)
[2020-02-12] MEDS ORDERED: NEURONTIN 400400 M1 PO (18:32)
[2020-02-12] MEDS ORDERED: BUPROPION XL150 MG PO (18:32)
[2020-02-12] MEDS ORDERED: FLEXERIL PO (18:53)
[2020-02-12 19:08] VITALS: BP 179/126
== END 2020-02-12 19:17 | disposition home or self-care (01) ==
LOC: ER 15:26
PROVIDERS: Emergency Medicine; Physician Assistant
DX: R10.31 Right lower quadrant pain (principal); R35.0 Frequency of micturition; R14.0 Abdominal distension (gaseous); E78.5 Hyperlipidemia, unspecified; F31.9 Bipolar disorder, unspecified; J45.909 Unspecified asthma, uncomplicated; E11.22 Type 2 diabetes mellitus with diabetic chronic kidney disease; I13.0 Hypertensive heart and chronic kidney disease with heart failure and stage 1 through stage 4 chronic kidney disease, or unspecified chronic kidney disease; N18.3 Chronic kidney disease, stage 3 (moderate); I50.9 Heart failure, unspecified; Z86.73 Personal history of transient ischemic attack (TIA), and cerebral infarction without residual deficits; Z90.711 Acquired absence of uterus with remaining cervical stump; Z98.890 Other specified postprocedural states

== ENCOUNTER 2020-10-15 14:24 | Emergency (ER) | payer OTHER ==
[~2020-10-15] VITALS: Ht 167.6 cm; Wt 113.4 kg
[~2020-10-15 14:24] MED LIST changes: +BUPROPION XL150 MG PO
[2020-10-15 14:57] LABS: ABSOLUTE NEUTROPHILS 3.1 thou/uL (1.4-8.2); BASOPHILS 0.8 % (0.0-2.0); EOSINOPHILS 2.5 % (0.0-3.0); HEMATOCRIT 35.7 % (37.0-47.0); HEMOGLOBIN 11.6 gm/dL (12.0-15.0); LYMPHOCYTES 23.3 % (24.0-44.0); MCH 27.3 pg (26.0-34.0); MCHC 32.6 g/dL (28.0-37.0); MCV 83.8 fL (80.0-100.0); MONOCYTES 12.2 % (1.0-8.0); PLATELET COUNT 208 thou/uL (150-400); POLYS 61.2 % (36.0-66.0); RBC 4.26 mil/uL (4.20-5.00); RDW 16.7 % (10.5-14.5)
[2020-10-15 15:06] LABS: ANION GAP 4 mmol/L (7-16); BUN 30 mg/dL (7-18); CALCIUM 8.8 mg/dL (8.5-10.1); CHLORIDE 106 mmol/L (98-107); CO2 26 mmol/L (21-32); CREATININE 2.6 mg/dL (0.6-1.0); GLUCOSE 236 mg/dL (74-106); POTASSIUM 4.6 mmol/L (3.5-5.1); SODIUM 136 mmol/L (136-145)
[2020-10-15 15:15] LABS: ALBUMIN 2.8 g/dL (3.4-5.0); SGOT 8 U/L (15-37); SGPT 13 U/L (14-59); TOTAL BILIRUBIN 0.3 mg/dL (0.2-1.0); TOTAL PROTEIN 7.2 g/dL (6.4-8.2); TROPONIN-I <0.06 ng/mL (<0.06)
[2020-10-15 17:09] LABS: AMP/METHAMP Negative (Negative); BARBITURATES Negative (Negative); BENZODIAZEPINES Negative (Negative); COCAINE POSITIVE (Negative); METHADONE Negative (Negative); OPIATES POSITIVE (Negative); PCP Negative (Negative)
[2020-10-15 19:15] VITALS: BP 126/72
--- NOTE | 2020-10-16 11:01 | EKG ---
[facility] [place] [address] ELECTROCARDIOGRAM REPORT Name: CANDIDO FISH [facility] [id number] Admission: 10/15/20 Attend Phys: Discharge: 10/15/20 Date of : [birth year] Report #: [id number] [facility] ED Test Date: 2020-10-15 Test Time: 14:32:52 Pat Name: CANDIDO FISH Department: Room: Gender: F Buildings And Grounds Director: unknown : 1965 Requested By: Toma [place] Order Number: [id number] MD: Saman Leos Measurements Intervals [place] Rate: 80 P: 71 [place]: 129 QRS: -12 QRSD: 98 T: 91 QT: 397 QTc: 458 Interpretive Statements Sinus rhythm Probable left atrial enlargement Nonspecific ST and T wave abnormality Compared to ECG 01/11/2020 13:04:35 No significant change was found Electronically Signed On 10-16-2020 11:01:22 CDT by Saman Leos [email or web address] <ELECTRONICALLY SIGNED> By: Saman Leos MD, [facility] 10/16/20 1101 1432 1432 Saman Leos MD, [facility] /EPI
== END 2020-10-15 19:15 | disposition home or self-care (01) ==
LOC: ER 14:24
PROVIDERS: Emergency Medicine
DX: R07.89 Other chest pain (principal); I10 Essential (primary) hypertension; F14.10 Cocaine abuse, uncomplicated; J45.909 Unspecified asthma, uncomplicated; E78.5 Hyperlipidemia, unspecified; E11.22 Type 2 diabetes mellitus with diabetic chronic kidney disease; I13.0 Hypertensive heart and chronic kidney disease with heart failure and stage 1 through stage 4 chronic kidney disease, or unspecified chronic kidney disease; N18.30 Chronic kidney disease, stage 3 unspecified; I50.9 Heart failure, unspecified; Z86.2 Personal history of diseases of the blood and blood-forming organs and certain disorders involving the immune mechanism; Z86.73 Personal history of transient ischemic attack (TIA), and cerebral infarction without residual deficits; Z90.710 Acquired absence of both cervix and uterus; Z79.4 Long term (current) use of insulin; Z79.899 Other long term (current) drug therapy; Z87.891 Personal history of nicotine dependence; Z88.0 Allergy status to penicillin; Z88.5 Allergy status to narcotic agent; Z88.8 Allergy status to other drugs, medicaments and biological substances

== ENCOUNTER 2021-03-14 14:36 | Emergency (ER) | payer OTHER ==
[~2021-03-14] VITALS: Ht 172.7 cm; Wt 127.0 kg
[2021-03-14 14:59] VITALS: BP 139/92
[2021-03-14] MEDS ORDERED: MOBIC7.5 MG PO (16:20)
== END 2021-03-14 16:30 | disposition home or self-care (01) ==
LOC: ER 14:36
DX: M25.551 Pain in right hip (principal); R10.30 Lower abdominal pain, unspecified

== ENCOUNTER 2021-04-02 13:00 | Emergency (ER) | payer OTHER ==
[~2021-04-02 13:00] MED LIST changes: +MOBIC7.5 MG PO
[2021-04-02 13:16] VITALS: BP 129/102
[2021-04-03] MEDS ORDERED: ADVAIR 250-501 EACH INH (09:58)
[2021-04-03] MEDS ORDERED: HYDROCODON-ACE1 EAC7 PO (09:58)
== END 2021-04-02 14:05 | disposition left against medical advice (07) ==
LOC: ER 13:00
DX: R10.9 Unspecified abdominal pain (principal); I13.0 Hypertensive heart and chronic kidney disease with heart failure and stage 1 through stage 4 chronic kidney disease, or unspecified chronic kidney disease; E11.22 Type 2 diabetes mellitus with diabetic chronic kidney disease; N18.30 Chronic kidney disease, stage 3 unspecified; I50.9 Heart failure, unspecified; J45.909 Unspecified asthma, uncomplicated; F41.9 Anxiety disorder, unspecified; F31.9 Bipolar disorder, unspecified; Z53.21 Procedure and treatment not carried out due to patient leaving prior to being seen by health care provider; Z90.710 Acquired absence of both cervix and uterus; Z98.890 Other specified postprocedural states; Z88.0 Allergy status to penicillin; Z88.5 Allergy status to narcotic agent; Z88.8 Allergy status to other drugs, medicaments and biological substances

== ENCOUNTER 2021-04-03 08:25 | Emergency (ER) | payer OTHER ==
[~2021-04-03] VITALS: Ht 167.6 cm; Wt 122.5 kg
[2021-04-03 08:50] VITALS: BP 116/88
[2021-04-03] MEDS ORDERED: ADVAIR 250-501 EACH INH (09:58)
[2021-04-03] MEDS ORDERED: HYDROCODON-ACE1 EAC7 PO (09:58)
== END 2021-04-03 12:31 | disposition left against medical advice (07) ==
LOC: ER 08:25
DX: R05.9 Cough, unspecified (principal); E11.22 Type 2 diabetes mellitus with diabetic chronic kidney disease; I13.0 Hypertensive heart and chronic kidney disease with heart failure and stage 1 through stage 4 chronic kidney disease, or unspecified chronic kidney disease; N18.30 Chronic kidney disease, stage 3 unspecified; J45.909 Unspecified asthma, uncomplicated; E78.5 Hyperlipidemia, unspecified; Z90.710 Acquired absence of both cervix and uterus; Z79.899 Other long term (current) drug therapy; Z79.4 Long term (current) use of insulin; Z87.891 Personal history of nicotine dependence; Z88.0 Allergy status to penicillin; Z88.5 Allergy status to narcotic agent; Z88.8 Allergy status to other drugs, medicaments and biological substances; Z98.890 Other specified postprocedural states